=== PATIENT | male | born 1950 | race Caucasian/White ===

== ENCOUNTER 2018-12-10 15:54 | Observation (INO) | payer MEDICARE ==
[2018-12-10] MEDS ORDERED: HYDROcodone/APAP 5-325MG 1 EACH TAB PO STA (16:49)
[2018-12-10 16:55] LABS: Basophils # (A) 0.1 k/uL (0-0.2); Basophils % (A) 1 %; Eosinophils # (A) 0.1 k/uL (0-0.7); Eosinophils % (A) 1 %; HCT 44.1 % (39.0-53.0); Lymphocytes # (A) 1.7 k/uL (1.0-4.8); Lymphocytes % (A) 19 %; MCH 31.9 pg (25.0-35.0); MCHC 33.9 g/dL (31.0-37.0); MCV 94.1 fL (80.0-100.0); Mean Platelet Volume 6.9; Monocytes # (A) 0.4 k/uL (0-1.0); Monocytes % (A) 5 %; Neutrophils # (A) 6.3 k/uL (1.3-7.7); Neutrophils % (A) 73 %; Platelet Count 293 k/uL (150-450); RBC 4.69 m/uL (4.30-5.90); RDW 12.6 % (11.5-15.5); WBC 8.7 k/uL (3.8-10.6)
[2018-12-10 16:57] LABS: Appearance,Urine Clear (Clear); Bilirubin,Urine Negative (Negative); Blood,Urine Negative (Negative); Color,Urine Yellow; Glucose,Urine (UA) Negative (Negative); Ketones,Urine Negative (Negative); Leukocyte Esterase,Urine Negative (Negative); Nitrite,Urine Negative (Negative); Protein,Urine Trace (Negative); Specific Gravity,Urine 1.027 (1.001-1.035)
[2018-12-10 16:58] LABS: ALT 13 U/L (21-72); AST 19 U/L (17-59); African American GFR (CKD) >90 (>60 ml/min/1.73 sqM); Albumin 4.2 g/dL (3.5-5.0); Alkaline Phosphatase 74 U/L (38-126); Anion Gap 6 mmol/L; Blood Urea Nitrogen 28 mg/dL (9-20); Calcium 9.6 mg/dL (8.4-10.2); Carbon Dioxide 32 mmol/L (22-30); Chloride 103 mmol/L (98-107); Creatine Kinase 111 U/L (55-170); Glucose 136 mg/dL (74-99); Non-African American GFR(CKD) 86 (>60 ml/min/1.73 sqM); Potassium 4.5 mmol/L (3.5-5.1); Sodium 141 mmol/L (137-145); Total Bilirubin 0.4 mg/dL (0.2-1.3); Total Protein 6.6 g/dL (6.3-8.2)
[2018-12-10 17:00] LABS: INR 0.9 (<1.2); Prothrombin Time 10.2 sec (9.0-12.0)
--- NOTE | 2018-12-10 17:30 | XR ---
EXAMINATION TYPE: XR chest 2V DATE OF EXAM: 12/10/2018 COMPARISON: NONE TECHNIQUE: PA and lateral views submitted. HISTORY: Altered mental status FINDINGS: The lungs are clear and there is no pneumothorax, pleural effusion, or focal pneumonia. Hyperinflat ion suggests COPD. Hypertrophic and degenerative changes of the vertebral column. No overt failure. IMPRESSION: 1. No acute process. Correlate for COPD.
--- NOTE | 2018-12-10 17:34 | CT ---
EXAMINATION TYPE: CT brain wo con DATE OF EXAM: 12/10/2018 COMPARISON: None HISTORY: altered mental status CT DLP: 1083.1 mGycm Automated exposure control for dose reduction was used. FINDINGS: There is no acute intracranial hemorrhage, mass effect, or midline shift identified. Atherosclerotic changes of the vasculature noted. Mild to moderate generalized degenerative change. There is diffuse and focal areas of low-attenuation the white matter which are nonspecific cystic.. IMPRESSION: Degenerative and nonspecific white matter changes most typical remote microvascular ischemia. If ther e is concern for acute ischemia correlate with MRI as clinically warranted.
--- NOTE | 2018-12-10 17:41 | CT ---
EXAMINATION TYPE: CT lumbar spine wo con DATE OF EXAM: 12/10/2018 5:18 PM COMPARISON: None HISTORY: pain, inability to ambulate CT DLP: 569.1 mGycm Automated exposure control for dose reduction was used. Unenhanced CT of the lumbar spine was performed. Bone and soft tissue window settings are submitted as well as coronal and sagittal reconstructions. There is a scoliotic curvature the spine with severe degenerative disc disease at all levels with hyp ertrophic spurring. Bilateral spondylolysis of L5 with grade 1 anterior listhesis results in signific ant bilateral foraminal encroachment. Calcification seen in the renal hilum are likely vascular. Athe rosclerotic change of the aorta. L1-L2: Normal disc space height. No disc herniation protrusion or central stenosis. No facet joint arthropathy. No evidence for foraminal encroachment. L2-L3: Diffuse disc bulging and hypertrophic changes facets. There is left-sided foraminal encroachme nt. Borderline canal stenosis. L3-L4: Diffuse disc bulging with hypertrophic changes including the facet joints result in bilateral foraminal encroachment and borderline to mild canal stenosis L4-L5: Circumferential disc bulging and facet arthropathy are noted. Bilateral foraminal encroachment and borderline canal stenosis. L5-S1: Bilateral spondylolysis of L5 with grade 1 anterior listhesis results in significant bilateral foraminal encroachment.. Suspect canal stenosis. Chronic appearing deformity of the right lamina pos teriorly. Cannot exclude a right paracentral disc herniation extending laterally to the right reticul ation image 54. This would extend toward the right neural foramina. IMPRESSION: 1. Scoliosis with severe degenerative disc disease with vacuum disc at all levels. 2. Bilateral spondylolysis with grade 1 spondylolisthesis L5 on S1 and bilateral foraminal encroachme nt. Suspect canal stenosis. Could not exclude a right lateral disc herniation. Recommend follow-up MR I. 3. Multilevel foraminal encroachment and suspected borderline to mild canal stenosis.
--- NOTE | 2018-12-10 18:03 | ED ---
Altered Mental Status HPI - General Chief Complaint: Altered Mental Status Stated Complaint: altered mental status Time Seen by Provider: 12/10/18 16:10 Source: patient, EMS Mode of arrival: EMS Limitations: no limitations - History of Present Illness Initial Comments: The patient is a 67-year-old male with past medical history of hypertension and Parkinson's who presents to emergency room with reported altered mental status. The patient is coming from [facility] where he is in an independent living apartment. He will have staff from the facility that comes and checks on him once a week. He also has help with dispensing his medications. States that today he ate lunch and went and laid on the couch. States that this is the last he remembers. [facility] staff came in to check on the patient and they state that he was in and out of consciousness. EMS was called. The patient did awake to find multiple staff members in his room. States he felt urgency to urinate and had an episode of urinary incontinence which is not uncommon for him. There was no reported seizure-like activity. Upon transfer to the hospital EMS reported the patient was alert and oriented. Patient denies any recent medication changes. He has had several falls over the past couple of weeks because he states it become difficult to ambulate. He normally ambulates with a cane however he has had significant lumbar back pain with eating pain into his bilateral lower extremities. States he has extreme pain upon standing and therefore has been moving around his apartment on his knees. Friends are at bedside. They state that they saw the patient this past weekend and he was acting normally and ambulating at his baseline. No report of any falls with bl unt head trauma. Fevers or chills. Denies any weakness in his upper extremities. He is not on any anticoagulation. There are no other alleviating, precipitating or modifying factors - Related Data Home Medications Medication Instructions Recorded Confirmed Albuterol Inhaler [Ventolin Hfa 1 - 2 puff INHALATION RT-Q6H PRN 12/10/18 12/10/18 Inhaler] Carbidopa-Levodopa 25-100 mg 1 tab PO TID 12/10/18 12/10/18 [Sinemet 25-100 mg] rOPINIRole HCL [Requip] 0.5 mg PO TID 12/10/18 12/10/18 Previous Rx's Medication Instructions Recorded Baclofen [Lioresal] 5 mg PO TID PRN #9 tab 12/13/18 Naproxen [Naprosyn] 250 mg PO BID #14 tab 12/13/18 Psyllium Husk 100% [Metamucil 6 gm PO DAILY packet 12/13/18 Packet] predniSONE 0 mg PO DIRECTED #10 tab 12/13/18 Allergies Allergy/AdvReac Type Severity Reaction Status Date / Time amoxicillin [From Augmentin] Allergy Nausea & Verified 12/10/18 20:27 Vomiting clavulanic acid Allergy Nausea & Verified 12/10/18 20:27 [From Augmentin] Vomiting Review of Systems ROS Statement: Those systems with pertinent positive or pertinent negative responses have been documented in the HPI. ROS Other: All systems not noted in ROS Statement are negative. Past Medical History Past Medical History: COPD, Hypertension Additional Past Medical History / Comment(s): Parkinson's History of Any Multi-Drug Resistant Organisms: None Reported Past Surgical History: Adenoidectomy, Back Surgery, Tonsillectomy Past Psychological History: No Psychological Hx Reported Smoking Status: Former smoker Past Alcohol Use History: None Reported Past Drug Use History: None Reported General Exam Limitations: no limitations General appearance: alert, in no apparent distress Head exam: Present: atraumatic, normocephalic Eye exam: Present: PERRL Pupils: Present: normal accommodation ENT exam: Present: normal exam Neck exam: Present: normal inspection. Absent: tenderness, meningismus Respiratory exam: Present: normal lung sounds bilaterally. Absent: respiratory distress, wheezes, rales Cardiovascular Exam: Present: regular rate, normal rhythm GI/Abdominal exam: Present: soft. Absent: distended, tenderness, guarding, rebound, rigid Extremities exam: Present: other (4/5 strength bilateral lower extremities) Back exam: Present: paraspinal tenderness (L2-L5) Neurological exam: Present: oriented X3 Psychiatric exam: Present: normal affect, normal mood Skin exam: Present: warm, dry, intact Course Vital Signs 12/10/18 12/10/18 16:08 18:35 Temperature 98 F Pulse Rate 89 82 Respiratory 18 18 Rate Blood Pressure 139/70 133/88 O2 Sat by Pulse 99 98 Oximetry Medical Decision Making - Medical Decision Making Upon arrival the patient was placed into room 2. A thorough history is obtained from EMS. The patient is alert and able to answer questions appropriately. He does report to urinary urgency and low back pain. I did recommend laboratory studies and a EKG. I also recommended CT and patient's brain and lumbar spine. Laboratory studies are unremarkable. First troponin is negative. Urinalysis shows trace protein. CT of the patient's brain demonstrates degenerative and nonspecific white matter changes most typical of remote intervascular ischemia. Lumbar spine CT demonstrates scoliosis with severe degenerative disc disease with vacuum disc at all levels. Bilateral spondylolysis with grade 1 listhesis L5 on S1 and bilateral foraminal encroachment. Multilevel foraminal encroachment and suspected borderline to mild canal stenosis area and I did perform a chest x-ray as well which demonstrates no acute process. The patient remains alert and oriented throughout his stay in the ED. I did provide him with a [place] for back pain. I did recommend hospital admission for which the patient did agree. A call discuss case with Dr. Landa. He is recommending PT and OT consults. He is also requesting neuro checks and EEG. These orders were placed. The patient remained in stable condition was transferred to the floor - Lab Data Result diagrams: 12/11/18 05:58 12/11/18 05:58 Lab Results 12/10/18 12/10/18 12/10/18 Range/Units 16:04 16:04 16:04 WBC 8.7 (3.8-10.6) k/uL RBC 4.69 (4.30-5.90) m/uL Hgb 15.0 (13.0-17.5) gm/dL Hct 44.1 (39.0-53.0) % MCV 94.1 (80.0-100.0) fL MCH 31.9 (25.0-35.0) pg MCHC 33.9 (31.0-37.0) g/dL RDW 12.6 (11.5-15.5) % Plt Count 293 (150-450) k/uL Neutrophils % 73 % Lymphocytes % 19 % Monocytes % 5 % Eosinophils % 1 % Basophils % 1 % Neutrophils # 6.3 (1.3-7.7) k/uL Lymphocytes # 1.7 (1.0-4.8) k/uL Monocytes # 0.4 (0-1.0) k/uL Eosinophils # 0.1 (0-0.7) k/uL Basophils # 0.1 (0-0.2) k/uL PT 10.2 (9.0-12.0) sec INR 0.9 (<1.2) APTT 26.0 (22.0-30.0) sec Sodium 141 (137-145) mmol/L Potassium 4.5 (3.5-5.1) mmol/L Chloride 103 (98-107) mmol/L Carbon Dioxide 32 H (22-30) mmol/L Anion Gap 6 mmol/L BUN 28 H (9-20) mg/dL Creatinine 0.91 (0.66-1.25) mg/dL Est GFR (CKD-EPI)AfAm >90 (>60 ml/min/1.73 sqM) Est GFR (CKD-EPI)NonAf 86 (>60 ml/min/1.73 sqM) Glucose 136 H (74-99) mg/dL Calcium 9.6 (8.4-10.2) mg/dL Total Bilirubin 0.4 (0.2-1.3) mg/dL AST 19 (17-59) U/L ALT 13 L (21-72) U/L Alkaline Phosphatase 74 (38-126) U/L Ammonia (<30) umol/L Creatine Kinase 111 (55-170) U/L Troponin I (0.000-0.034) ng/mL Total Protein 6.6 (6.3-8.2) g/dL Albumin 4.2 (3.5-5.0) g/dL Triglycerides (<150) mg/dL Cholesterol (<200) mg/dL LDL Cholesterol, Calc (0-99) mg/dL HDL Cholesterol (40-60) mg/dL Vitamin B12 (200.0-944.0) pg/mL TSH (0.465-4.680) mIU/L Urine Color Urine Appearance (Clear) Urine pH (5.0-8.0) Ur Specific [place] (1.001-1.035) Urine Protein (Negative) Urine Glucose (UA) (Negative) Urine Ketones (Negative) Urine Blood (Negative) Urine Nitrite (Negative) Urine Bilirubin (Negative) Urine Urobilinogen (<2.0) mg/dL Ur Leukocyte Esterase (Negative) Treponema pallidum Ab (Non-Reactive) 12/10/18 12/10/18 12/11/18 Range/Units 16:04 16:52 05:58 WBC 6.2 (3.8-10.6) k/uL RBC 4.17 L (4.30-5.90) m/uL Hgb 13.3 (13.0-17.5) gm/dL Hct 39.4 (39.0-53.0) % MCV 94.4 (80.0-100.0) fL MCH 31.8 (25.0-35.0) pg MCHC 33.7 (31.0-37.0) g/dL RDW 12.6 (11.5-15.5) % Plt Count 253 (150-450) k/uL Neutrophils % 64 % Lymphocytes % 26 % Monocytes % 6 % Eosinophils % 1 % Basophils % 1 % Neutrophils # 4.0 (1.3-7.7) k/uL Lymphocytes # 1.6 (1.0-4.8) k/uL Monocytes # 0.4 (0-1.0) k/uL Eosinophils # 0.1 (0-0.7) k/uL Basophils # 0.0 (0-0.2) k/uL PT (9.0-12.0) sec INR (<1.2) APTT (22.0-30.0) sec Sodium (137-145) mmol/L Potassium (3.5-5.1) mmol/L Chloride (98-107) mmol/L Carbon Dioxide (22-30) mmol/L Anion Gap mmol/L BUN (9-20) mg/dL Creatinine (0.66-1.25) mg/dL Est GFR (CKD-EPI)AfAm (>60 ml/min/1.73 sqM) Est GFR (CKD-EPI)NonAf (>60 ml/min/1.73 sqM) Glucose (74-99) mg/dL Calcium (8.4-10.2) mg/dL Total Bilirubin (0.2-1.3) mg/dL AST (17-59) U/L ALT (21-72) U/L Alkaline Phosphatase (38-126) U/L Ammonia (<30) umol/L Creatine Kinase (55-170) U/L Troponin I <0.012 (0.000-0.034) ng/mL Total Protein (6.3-8.2) g/dL Albumin (3.5-5.0) g/dL Triglycerides (<150) mg/dL Cholesterol (<200) mg/dL LDL Cholesterol, Calc (0-99) mg/dL HDL Cholesterol (40-60) mg/dL Vitamin B12 (200.0-944.0) pg/mL TSH (0.465-4.680) mIU/L Urine Color Yellow Urine Appearance Clear (Clear) Urine pH 7.0 (5.0-8.0) Ur Specific [place] 1.027 (1.001-1.035) Urine Protein Trace H (Negative) Urine Glucose (UA) Negative (Negative) Urine Ketones Negative (Negative) Urine Blood Negative (Negative) Urine Nitrite Negative (Negative) Urine Bilirubin Negative (Negative) Urine Urobilinogen 6.0 (<2.0) mg/dL Ur Leukocyte Esterase Negative (Negative) Treponema pallidum Ab (Non-Reactive) 12/11/18 12/12/18 12/12/18 Range/Units 05:58 06:46 06:49 WBC (3.8-10.6) k/uL RBC (4.30-5.90) m/uL Hgb (13.0-17.5) gm/dL Hct (39.0-53.0) % MCV (80.0-100.0) fL MCH (25.0-35.0) pg MCHC (31.0-37.0) g/dL RDW (11.5-15.5) % Plt Count (150-450) k/uL Neutrophils % % Lymphocytes % % Monocytes % % Eosinophils % % Basophils % % Neutrophils # (1.3-7.7) k/uL Lymphocytes # (1.0-4.8) k/uL Monocytes # (0-1.0) k/uL Eosinophils # (0-0.7) k/uL Basophils # (0-0.2) k/uL PT (9.0-12.0) sec INR (<1.2) APTT (22.0-30.0) sec Sodium 140 (137-145) mmol/L Potassium 4.2 (3.5-5.1) mmol/L Chloride 105 (98-107) mmol/L Carbon Dioxide 31 H (22-30) mmol/L Anion Gap 4 mmol/L BUN 27 H (9-20) mg/dL Creatinine 0.72 (0.66-1.25) mg/dL Est GFR (CKD-EPI)AfAm >90 (>60 ml/min/1.73 sqM) Est GFR (CKD-EPI)NonAf >90 (>60 ml/min/1.73 sqM) Glucose 93 (74-99) mg/dL Calcium 9.0 (8.4-10.2) mg/dL Total Bilirubin (0.2-1.3) mg/dL AST (17-59) U/L ALT (21-72) U/L Alkaline Phosphatase (38-126) U/L Ammonia (<30) umol/L Creatine Kinase (55-170) U/L Troponin I (0.000-0.034) ng/mL Total Protein (6.3-8.2) g/dL Albumin (3.5-5.0) g/dL Triglycerides 57 (<150) mg/dL Cholesterol 165 (<200) mg/dL LDL Cholesterol, Calc 89 (0-99) mg/dL HDL Cholesterol 65 H (40-60) mg/dL Vitamin B12 416.0 (200.0-944.0) pg/mL TSH 0.794 (0.465-4.680) mIU/L Urine Color Urine Appearance (Clear) Urine pH (5.0-8.0) Ur Specific [place] (1.001-1.035) Urine Protein (Negative) Urine Glucose (UA) (Negative) Urine Ketones (Negative) Urine Blood (Negative) Urine Nitrite (Negative) Urine Bilirubin (Negative) Urine Urobilinogen (<2.0) mg/dL Ur Leukocyte Esterase (Negative) Treponema pallidum Ab Non-Reactive (Non-Reactive) 12/12/18 Range/Units 08:46 WBC (3.8-10.6) k/uL RBC (4.30-5.90) m/uL Hgb (13.0-17.5) gm/dL Hct (39.0-53.0) % MCV (80.0-100.0) fL MCH (25.0-35.0) pg MCHC (31.0-37.0) g/dL RDW (11.5-15.5) % Plt Count (150-450) k/uL Neutrophils % % Lymphocytes % % Monocytes % % Eosinophils % % Basophils % % Neutrophils # (1.3-7.7) k/uL Lymphocytes # (1.0-4.8) k/uL Monocytes # (0-1.0) k/uL Eosinophils # (0-0.7) k/uL Basophils # (0-0.2) k/uL PT (9.0-12.0) sec INR (<1.2) APTT (22.0-30.0) sec Sodium (137-145) mmol/L Potassium (3.5-5.1) mmol/L Chloride (98-107) mmol/L Carbon Dioxide (22-30) mmol/L Anion Gap mmol/L BUN (9-20) mg/dL Creatinine (0.66-1.25) mg/dL Est GFR (CKD-EPI)AfAm (>60 ml/min/1.73 sqM) Est GFR (CKD-EPI)NonAf (>60 ml/min/1.73 sqM) Glucose (74-99) mg/dL Calcium (8.4-10.2) mg/dL Total Bilirubin (0.2-1.3) mg/dL AST (17-59) U/L ALT (21-72) U/L Alkaline Phosphatase (38-126) U/L Ammonia <9 (<30) umol/L Creatine Kinase (55-170) U/L Troponin I (0.000-0.034) ng/mL Total Protein (6.3-8.2) g/dL Albumin (3.5-5.0) g/dL Triglycerides (<150) mg/dL Cholesterol (<200) mg/dL LDL Cholesterol, Calc (0-99) mg/dL HDL Cholesterol (40-60) mg/dL Vitamin B12 (200.0-944.0) pg/mL TSH (0.465-4.680) mIU/L Urine Color Urine Appearance (Clear) Urine pH (5.0-8.0) Ur Specific [place] (1.001-1.035) Urine Protein (Negative) Urine Glucose (UA) (Negative) Urine Ketones (Negative) Urine Blood (Negative) Urine Nitrite (Negative) Urine Bilirubin (Negative) Urine Urobilinogen (<2.0) mg/dL Ur Leukocyte Esterase (Negative) Treponema pallidum Ab (Non-Reactive) - EKG Data EKG Comments: EKG demonstrates normal sinus rhythm with a ventricular rate of 83. NC interval 136. QRS 86. QTC 4:30. No acute ST segment elevations or depressions concerning for ischemic changes Disposition Clinical Impression: Acute encephalopathy Disposition: ADMITTED IP TO THIS HOSP Condition: Stable Is patient prescribed a controlled substance at d/c from ED?: No Decision to Admit Reason: Admit from EC Decision Date: 12/10/18 Decision Time: 18:35
[2018-12-10] MEDS ORDERED: NALOXONE 0.4 MG/ML 1 ML VIAL IV PRN (18:37)
[2018-12-10] MEDS: HYDROcodone/APAP 5-325MG 1 EACH TAB PO PRN (20:38)
[2018-12-10] MEDS: CARBIDOPA-LEVODOPA 25-100 MG 1 EACH TAB PO SCH (20:38)
[2018-12-11] MEDS: HYDROcodone/APAP 5-325MG 1 EACH TAB PO PRN ×2 (05:05→11:07)
[2018-12-11 06:33] LABS: Basophils % (A) 1 %; Eosinophils # (A) 0.1 k/uL (0-0.7); Eosinophils % (A) 1 %; HCT 39.4 % (39.0-53.0); HGB 13.3 gm/dL (13.0-17.5); Lymphocytes # (A) 1.6 k/uL (1.0-4.8); Lymphocytes % (A) 26 %; MCH 31.8 pg (25.0-35.0); MCHC 33.7 g/dL (31.0-37.0); MCV 94.4 fL (80.0-100.0); Mean Platelet Volume 6.6; Monocytes # (A) 0.4 k/uL (0-1.0); Monocytes % (A) 6 %; Neutrophils % (A) 64 %; Platelet Count 253 k/uL (150-450); RBC 4.17 m/uL (4.30-5.90); RDW 12.6 % (11.5-15.5); WBC 6.2 k/uL (3.8-10.6)
[2018-12-11 06:59] LABS: African American GFR (CKD) >90 (>60 ml/min/1.73 sqM); Anion Gap 4 mmol/L; Blood Urea Nitrogen 27 mg/dL (9-20); Carbon Dioxide 31 mmol/L (22-30); Chloride 105 mmol/L (98-107); Glucose 93 mg/dL (74-99); Non-African American GFR(CKD) >90 (>60 ml/min/1.73 sqM); Potassium 4.2 mmol/L (3.5-5.1); Sodium 140 mmol/L (137-145)
[2018-12-11] MEDS: LISINOPRIL 5 MG TAB PO SCH (08:33)
[2018-12-11] MEDS: CARBIDOPA-LEVODOPA 25-100 MG 1 EACH TAB PO SCH ×3 (08:33→20:40)
[2018-12-11] MEDS ORDERED: DONEPEZIL 10 MG TAB PO SCH (09:00)
--- NOTE | 2018-12-11 16:30 | P.CNNES ---
History of Present Illness Consult date: 12/11/18 Reason for Consult: AMS Chief complaint: Passing out History of Present Illness: HISTORY OF PRESENT ILLNESS: Thank you for allowing me to evaluate Mr. Iker Arias. Mr. Arias is a 67-year-old man with past medical history of COPD, hypertension, presented to [facility] for reported altered mental status. Patient lives in an independent living facility. Patient states that he was found by the facility staff to call the checks on him once a week. The staff had called to check on him yesterday when he was found with intermittent changes in mental status. Denies any recent medication changes. Patient states that he's had multiple episodes of passing out where he sometimes finds himself on the floor. There may have been episodes of patient urinating on himself, but very little. Patient with significant pain when he stands, he stated that he's doing around on his knees in his apartment. PAST MEDICAL HISTORY: COPD, hypertension PAST SURGICAL HISTORY: Adenoidectomy, back surgery, tonsillectomy HOME MEDICATIONS: Requip, lisinopril, Sinemet, Donepezil ALLERGIES: Amoxicillin, Clavulanic acid SOCIAL HISTORY: Former smoker REVIEW OF SYSTEMS: The 14 systems are reviewed and no additional points are identified compared to the review of systems documented history and physical PHYSICAL EXAMINATION: VITAL SIGNS: T 97.7 HR 75 RR 18 BP 147/70 O2 sat 100% on RA GEN.: NAD, cooperative, masked facies HEENT: NCAT, sclera without icterus NECK: Supple SKIN AND EXTREMITIES: Warm to touch, cold hands and feet. Patient with significant cervical kyphosis NEURO: MENTAL STATUS: Patient alert and oriented to self, place, time. Able to name the current president. Speech fluent, able to name and repeat, following all commands readily. No right and left disorientation, neglect. CRANIAL NERVES II THROUGH XII: II: Pupils are equal and reactive to light symmetrically. No afferent pupillary defect. Visual ríos are intact. III, IV, : No ptosis. Extraocular movements full. No nystagmus. V: Facial sensation intact from V1-3. VII. No clear facial asymmetry. VIII: Hearing intact to finger rub bilaterally. IX, X: Symmetric palate elevation. XI: Shoulder shrug intact. XII: Tongue midline without fasciculation or atrophy. MOTOR: Normal bulk/tone. No pronator drift or tremor. Strength is 5/5 throughout all 4 extremities. SENSORY: Intact to light touch in all 4 extremities. REFLEXES: 2+ throughout. Toes are downgoing. COORDINATION: Finger to nose and heel to seay intact. No dysmetria. Rapid alternating movements with good speed and accuracy. GAIT: Narrow-based and stable but cautious. Significant cervical and lumbar kyphosis DIAGNOSTIC TESTING: LABORATORY: WBC 6.2 hemoglobin 13.3 platelet 253 PT 10.2 INR 0.9 sodium 140 potassium 4.2 chloride 105 bicarb 31 BUN 27 creatinine 0.72 glucose 93 AST 19 ALT 13 74 troponin <0.012 urinalysis negative IMAGING: CT head without contrast 12/10/2018: Degenerative and nonspecific white matter changes most typical remote microvascular ischemia. EKG: Normal sinus rhythm ASSESSMENT: 67-year-old man with past medical history of COPD, hypertension, presented to [facility] for reported altered mental status. Patient at this time with no focal neuro deficits. CT head showing diffuse nonspecific white matter changes most typical remote microvascular ischemia. Patient with episodes of losing consciousness without any heart palpitations or prodromal events, the patient is also not the best historian. RECOMMENDATIONS: 1. Recommend cardiology consult 2. Routine EEG obtained. Awaiting final results 3. Labs: Vitamin B12, TSH, RPR. 4. Orthostatic vital check. 5. Patient is on ropinirole and Sinemet. We'll discuss with patient about the possible diagnosis of Parkinson's disease. 6. We'll obtain MRI brain without contrast Past Medical History Past Medical History: COPD, Hypertension Additional Past Medical History / Comment(s): Parkinson's History of Any Multi-Drug Resistant Organisms: None Reported Past Surgical History: Adenoidectomy, Back Surgery, Tonsillectomy Past Psychological History: No Psychological Hx Reported Smoking Status: Former smoker Past Alcohol Use History: None Reported Past Drug Use History: None Reported Medications and Allergies Home Medications Medication Instructions Recorded Confirmed Type Albuterol Inhaler [Ventolin Hfa 1 - 2 puff INHALATION RT-Q6H PRN 12/10/18 12/10/18 History Inhaler] Carbidopa-Levodopa 25-100 mg 1 tab PO TID 12/10/18 12/10/18 History [Sinemet 25-100] Donepezil [Aricept] 10 mg PO DAILY 12/10/18 12/10/18 History Lisinopril [Prinivil] 5 mg PO DAILY 12/10/18 12/10/18 History rOPINIRole HCL [Requip] 0.5 mg PO TID 12/10/18 12/10/18 History Allergies Allergy/AdvReac Type Severity Reaction Status Date / Time amoxicillin [From Augmentin] Allergy Nausea & Verified 12/10/18 20:27 Vomiting clavulanic acid Allergy Nausea & Verified 12/10/18 20:27 [From Augmentin] Vomiting Physical Examination - Vital Signs Vital Signs: Vital Signs Temp Pulse Pulse Resp BP BP Pulse Ox 12/11/18 12:00 97.7 F 75 18 147/70 100 12/11/18 08:00 96.0 F L 89 20 153/79 97 12/11/18 04:00 85 16 140/74 98 12/10/18 23:42 98.3 F 83 16 121/57 96 12/10/18 20:00 98.5 F 72 17 157/78 100 12/10/18 18:35 82 18 133/88 98 Intake and Output 12/11/18 12/11/18 12/11/18 06:59 14:59 22:59 Intake Total 190 Balance 190 Intake: Oral 190 Other: Voiding Method Urinal Urinal Diaper # Voids 1 2 Weight 52.5 kg 52.5 kg Results - Laboratory Findings CBC and BMP: 12/11/18 05:58 12/11/18 05:58 Abnormal Lab Findings: Abnormal Labs 12/10/18 12/10/18 12/11/18 16:04 16:52 05:58 RBC 4.17 L Carbon Dioxide 32 H BUN 28 H Glucose 136 H ALT 13 L Urine Protein Trace H 12/11/18 05:58 RBC Carbon Dioxide 31 H BUN 27 H Glucose ALT Urine Protein
[2018-12-11] MEDS ORDERED: NAPROXEN 250 MG TAB PO STA (21:40)
[2018-12-11] MEDS ORDERED: predniSONE 20 MG TAB PO STA (21:41)
--- NOTE | 2018-12-11 21:54 | P.HPIM ---
History of Present Illness H&P Date: 12/11/18 Chief Complaint: Altered consciousness History of present complaint: This is a very pleasant 67-year-old patient of Dr. Bragg. Chronic stable medical conditions include COPD, hypertension, Parkinson's disease. Patient is to baseline is unsteady on his feet but he can hold onto things or even sometimes without that and walk.. All from recent patient been having incr easing low back pain. The pain has been significant. Unable to walk. Patient has been crawling on his knees. Yesterday he came back from lunch laying on the couch and was found her altered mental status. Patient has some incontinence at baseline. No seizure activity was reported. No focal weakness. Appetite is fair. No fever no chills or respiratory symptoms Review of systems: GEN.: Tired EYES: None HEENT: None NECK: None RESPIRATORY: None CARDIOVASCULAR: None GASTROINTESTINAL: None GENITOURINARY: Chronic intermittent incontinence MUSCULOSKELETAL: As above LYMPHATICS: None HEMATOLOGICAL: None PSYCHIATRY: Some forgetfulness NEUROLOGICAL: Tremor and gait dysfunction Social history: Does smoke in the past. Retired. Physical examination: VITAL SIGNS: 139/70, 99% room air GENERAL: BMI 18.7, sitting upon a chair leaning forward. EYES: Pupils equal. Conjunctiva normal. HEENT: External appearance of nose and ears normal, oral cavity grossly normal. NECK: JVD not raised; masses not palpable. HEART: First and second heart sounds are normal; no edema. LUNGS:[ Respiratory rate normal; decreased breath sounds. ABDOMEN: Soft, nontender, liver spleen not palpable, no masses palpable. PSYCH: Awake able to answer questions, mood and affect slightly lowl. NEUROLOGICAL: Patient's has monotone voice., Resting tremor. Bradykinesia. No rigidity. LYMPHATICS: No lymph nodes palpable in the axilla and neck MUSCULOSKELETAL: Evidence of arthritis especially in the hands INVESTIGATIONS, reviewed in the clinical context: White count 8.7 hemoglobin 15 potassium 4.5 crit 0.91 troponin I less than 0.012 EKG tracing personally reviewed by me-normal sinus rhythm Chest x-ray film personally reviewed by me-some hyperinflation CTs brain-degenerative and nonspecific white matter changes CT scan of the lumbar spine-scoliosis with severe DJD disc disease at all levels, bilateral foraminal encroachment suspected Stenosis Assessment: -Patient Had Episodes of Altered Consciousness Noticed at his place of residence. Given significant computed tomography scan findings need to rule out seizure activity. -Severe gait dysfunction from severe lumbar DJD, herniated disc, spondylosis and suspected spinal CANAL stenosis. This is a multiple level has not a candidate for any surgical intervention. 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 -COPD in an ex-smoker -Essential hypertension Plan: Neurology was consulted. EEG was ordered. 4 for the back pain we'll give the patient NSAIDs, baclofen and a burst of steroids. We will see use a K pad. PTOT is being consulted. Expect patient to have bit better once his pain is controlled. Care was discussed with the patient question were answered. Past Medical History Past Medical History: COPD, Hypertension Additional Past Medical History / Comment(s): Parkinson's History of Any Multi-Drug Resistant Organisms: None Reported Past Surgical History: Adenoidectomy, Back Surgery, Tonsillectomy Past Psychological History: No Psychological Hx Reported Smoking Status: Former smoker Past Alcohol Use History: None Reported Past Drug Use History: None Reported Medications and Allergies Home Medications Medication Instructions Recorded Confirmed Type Albuterol Inhaler [Ventolin Hfa 1 - 2 puff INHALATION RT-Q6H PRN 12/10/18 12/10/18 History Inhaler] Carbidopa-Levodopa 25-100 mg 1 tab PO TID 12/10/18 12/10/18 History [Sinemet 25-100] Donepezil [Aricept] 10 mg PO DAILY 12/10/18 12/10/18 History Lisinopril [Prinivil] 5 mg PO DAILY 12/10/18 12/10/18 History rOPINIRole HCL [Requip] 0.5 mg PO TID 12/10/18 12/10/18 History Allergies Allergy/AdvReac Type Severity Reaction Status Date / Time amoxicillin [From Augmentin] Allergy Nausea & Verified 12/10/18 20:27 Vomiting clavulanic acid Allergy Nausea & Verified 12/10/18 20:27 [From Augmentin] Vomiting Physical Exam Vitals: Vital Signs Temp Pulse Pulse Resp BP BP Pulse Ox 12/11/18 08:00 96.0 F L 89 20 153/79 97 12/11/18 04:00 85 16 140/74 98 12/10/18 23:42 98.3 F 83 16 121/57 96 12/10/18 20:00 98.5 F 72 17 157/78 100 12/10/18 18:35 82 18 133/88 98 12/10/18 16:08 98 F 89 18 139/70 99 Intake and Output 12/10/18 12/11/18 12/11/18 22:59 06:59 14:59 Output Total 20 Balance -20 Output: Urine 20 Other: Voiding Method Urinal Urinal Urinal Diaper # Voids 1 Weight 58.967 kg 52.5 kg 52.5 kg Results CBC & Chem 7: 12/11/18 05:58 12/11/18 05:58 Labs: Abnormal Lab Results - Last 24 Hours (Table) 12/10/18 12/10/18 12/11/18 Range/Units 16:04 16:52 05:58 RBC 4.17 L (4.30-5.90) m/uL Carbon Dioxide 32 H (22-30) mmol/L BUN 28 H (9-20) mg/dL Glucose 136 H (74-99) mg/dL ALT 13 L (21-72) U/L Urine Protein Trace H (Negative) 12/11/18 Range/Units 05:58 RBC (4.30-5.90) m/uL Carbon Dioxide 31 H (22-30) mmol/L BUN 27 H (9-20) mg/dL Glucose (74-99) mg/dL ALT (21-72) U/L Urine Protein (Negative) Thrombosis Risk Factor Assmnt - Choose All That Apply Any of the Below Risk Factors Present?: Yes Each Factor Represents 1 point: Abnormal pulmonary function (COPD), Medical pt on bed rest Other Risk Factors: Yes Each Risk Factor Represents 2 Points: Age 61-74 years Other congenital or acquired thrombophilia - If yes, enter type in comment: No Thrombosis Risk Factor Assessment Total Risk Factor Score: 4 Thrombosis Risk Factor Assessment Level: Moderate Risk
--- NOTE | 2018-12-11 22:19 | EEG ---
ELECTROENCEPHALOGRAM REPORT DATE OF PROCEDURE: 12/11/2018 ELECTROENCEPHALOGRAM (EEG) REPORT: TECHNIQUE: A routine 18-channel EEG was performed with video using the 10/20 international electrode placement system. HISTORY: Patient was in and out of consciousness, altered mental status. Patient brought to the emergency room for evaluation. CURRENT MEDICATIONS: 1. Requip. 2. Lisinopril. 3. Aricept. 4. Sinemet. 5. [place]. STUDY DURATION: 20 minutes. FINDINGS: Please note that portions of the recording were limited in their interpretation by the presence of muscle artifact. BACKGROUND: The background activity consisted of unsustained 5 to 6 Hz rhythmic waveforms with some intermixed delta range slowing. ACTIVATION: Hyperventilation: Not performed. Photic stimulation: No driving seen. Sleep: Drowsy. ABNORMALITIES: 1. Diffuse synchronous and asynchronous 3 to 6 Hz slow wave activity was seen, at times more frontally predominant. 2. Occasional triphasic waves were seen. IMPRESSION: Limited study, abnormal EEG. The triphasic waves mentioned above are not epileptiform in nature. Triphasic waves can be seen in the setting of a metabolic encephalopathy. The diffuse synchronous and asynchronous theta delta range slowing mentioned above is not epileptiform in nature. In combination with the slow background, these findings indicate moderate diffuse cerebral dysfunction as may be seen in a toxometabolic encephalopathy. No seizures were recorded. No epileptiform activity was present. MMODL / IJN: [id number] / MTDD
[2018-12-11] MEDS: BACLOFEN 10 MG TAB PO SCH (22:45)
[2018-12-11] MEDS: ENOXAPARIN 40 MG/0.4 ML SYRINGE SQ SCH (23:12)
[2018-12-12] MEDS: NAPROXEN 250 MG TAB PO SCH ×3 (09:27→20:52)
[2018-12-12] MEDS: BACLOFEN 10 MG TAB PO SCH ×3 (09:27→20:52)
[2018-12-12] MEDS: predniSONE 20 MG TAB PO SCH (09:27)
[2018-12-12] MEDS: ENOXAPARIN 40 MG/0.4 ML SYRINGE SQ SCH (09:28)
[2018-12-12] MEDS: CARBIDOPA-LEVODOPA 25-100 MG 1 EACH TAB PO SCH ×3 (09:28→20:52)
[2018-12-12] MEDS: LISINOPRIL 5 MG TAB PO SCH (09:28)
--- NOTE | 2018-12-12 13:51 | MR ---
EXAMINATION TYPE: MR brain wo con DATE OF EXAM: 12/12/2018 1:37 PM COMPARISON: NONE HISTORY: AMS FINDINGS: The ventricles, basal cisterns and sulci overlying the cerebral convexities are mildly enlarged. There is evidence of very thin fluid periventricular white matter ischemic demyelination. Frontal di agnostic possibilities include Binswanger's disease as well as demyelinating disease. Remote deep white matter insults are also noted. No acute edema is seen on diffusion weighted imaging. There is no evidence for midline shift or mass effect. Acute intracranial hemorrhage or extra-axial collection is not evident. The paranasal sinuses and mastoid air cells are well-aerated. IMPRESSION: Age-related atrophic and chronic small vessel ischemic change. Similar Binswanger's disease or demye lination. No acute intracranial process at this time.
--- NOTE | 2018-12-12 20:31 | P.PN ---
Progress Note - Text Progress Note Date: 12/12/18 SUBJECTIVE/INTERVAL EVENTS: No acute overnight events. Nurse pharmacy technician assistant states that patient already looks better as he's eating better. Patient also smiling more today. PHYSICAL EXAMINATION: VITAL SIGNS: T 96 HR 89 RR 20 BP 153/79 O2 sat 97% on RA GEN.: NAD, cooperative, masked facies HEENT: NCAT, sclera without icterus NECK: Supple SKIN AND EXTREMITIES: Warm to touch, cold hands and feet. Patient with significant cervical kyphosis NEURO: MENTAL STATUS: Patient alert and oriented to self, place, time. Able to name the current president. Speech fluent, able to name and repeat, following all commands readily. No right and left disorientation, neglect. CRANIAL NERVES II THROUGH XII: II: Pupils are equal and reactive to light symmetrically. No afferent pupillary defect. Visual ríos are intact. III, IV, : No ptosis. Extraocular movements full. No nystagmus. V: Facial sensation intact from V1-3. VII. No clear facial asymmetry. VIII: Hearing intact to finger rub bilaterally. IX, X: Symmetric palate elevation. XI: Shoulder shrug intact. XII: Tongue midline without fasciculation or atrophy. MOTOR: Normal bulk/tone. No pronator drift or tremor. Strength is 5/5 throughout all 4 extremities. SENSORY: Intact to light touch in all 4 extremities. REFLEXES: 2+ throughout. Toes are downgoing. COORDINATION: Finger to nose and heel to seay intact. No dysmetria. Rapid alternating movements with good speed and accuracy. GAIT: Narrow-based and stable but cautious. Significant cervical and lumbar kyphosis DIAGNOSTIC TESTING: LABORATORY: WBC 6.2 hemoglobin 13.3 platelet 253 PT 10.2 INR 0.9 sodium 140 potassium 4.2 chloride 105 bicarb 31 BUN 27 creatinine 0.72 glucose 93 AST 19 ALT 13 74 troponin <0.012 urinalysis negative Total cholesterol 165 LDL 89 HDL 65 triglycerides 57 TSH 0.794 Vitamin B12 416 RPR non-reactive ammonia <9 IMAGING: MRI brain w/o contrast 12/12/18: Age-related, white matter changes, chronic microvascular changes. Routine EEG 12/11/2018: Limited study. Triphasic waves present, which can be seen in the setting of metabolic encephalopathy. No epileptiform or seizures were recorded. CT head without contrast 12/10/2018: Degenerative and nonspecific white matter changes most typical remote microvascular ischemia. EKG: Normal sinus rhythm ASSESSMENT: 67-year-old man with past medical history of COPD, hypertension, presented to [facility] for reported altered mental status. Patient at this time with no focal neuro deficits. CT head showing diffuse nonspecific white matter changes most typical remote microvascular ischemia. Patient with episodes of losing consciousness without any heart palpitations or prodromal events, the p atient is also not the best historian. MRI brain w/o contrast showing diffuse microvascular ischemic changes, no acute intracranial process. RECOMMENDATIONS: 1. Routine EEG during triphasic waves, most likely metabolic encephalopathy 2. Orthostatic vital check. 3. Patient is on ropinirole and Sinemet. Patient cannot provide much information about the medication (but states that they were probably started 2 years ago) and denies having diagnosis of Parkinson's disease. 4. Neurology will sign off at this time. Please call with additional questions or concerns.
--- NOTE | 2018-12-12 22:12 | P.PN ---
Progress Note - Text Progress Note Date: 12/12/18 Chief Complaint: Altered consciousness Interval history: This is a very pleasant 67-year-old patient of Dr. Bragg. Chronic stable medical conditions include COPD, hypertension, Parkinson's disease. Patient is to baseline is unsteady on his feet but he can hold onto things or even sometimes without that and walk.. All from recent patient been having increasing low back pain. The pain has been significant. Unable to walk. Patient has been crawling on his knees. Yesterday he came back from lunch laying on the couch and was found her altered mental status. Patient has some incontinence at baseline. No seizure activity was reported. No focal weakness. Appetite is fair. No fever no chills or respiratory symptoms Admitted with possible flare up of Parkinson's disease likely from on and off phenomena. Element of encephalopathy. He came chronic back pain. Extensive workup in the past. Today-feeling much better. He did walk to the bathroom and to the sofa with little assistance. Did tolerate some diet. Review of systems: Was done for constitutional, cardiovascular, GI, pulmonary. relevant finding as above Active Medications Baclofen (Lioresal) 5 mg PO TID [facility] Last Admin: 12/12/18 20:52 Dose: 5 mg Documented by: Carbidopa/Levodopa (Sinemet 25-100) 1 each PO TID [facility] Last Admin: 12/12/18 20:52 Dose: 1 each Documented by: Enoxaparin Sodium (Lovenox) 40 mg SQ DAILY [facility] Last Admin: 12/12/18 09:28 Dose: 40 mg Documented by: Lisinopril (Zestril) 5 mg PO DAILY [facility] Last Admin: 12/12/18 09:28 Dose: 5 mg Documented by: Naloxone HCl (Narcan) 0.2 mg IV Q2M PRN PRN Reason: Opioid Reversal Naproxen (Naprosyn) 250 mg PO TID [facility] Last Admin: 12/12/18 20:52 Dose: 250 mg Documented by: Prednisone () 40 mg PO DAILY [facility] Last Admin: 12/12/18 09:27 Dose: 40 mg Documented by: Ropinirole HCl (Requip) 0.5 mg PO TID [facility] Last Admin: 12/12/18 20:52 Dose: 0.5 mg Documented by: Physical examination: VITAL SIGNS: 97.6, 88, 16, 130/72, 98% room air GENERAL: Sitting up at the sofa near the window leaning forward EYES: Pupils equal. Conjunctiva normal. HEENT: External appearance of nose and ears normal, oral cavity grossly normal. NECK: JVD not raised; masses not palpable. HEART: First and second heart sounds are normal; no edema. LUNGS:[ Respiratory rate normal; decreased breath sounds. ABDOMEN: Soft, nontender, liver spleen not palpable, no masses palpable. PSYCH: Awake able to answer questions, mood and affect slightly lowl. NEUROLOGICAL: Patient's has monotone voice., Resting tremor. Bradykinesia. No rigidity. MUSCULOSKELETAL: Evidence of arthritis especially in the hands INVESTIGATIONS, reviewed in the clinical context: White count 8.7 hemoglobin 15 potassium 4.5 crit 0.91 troponin I less than 0.012 EKG tracing personally reviewed by me-normal sinus rhythm Chest x-ray film personally reviewed by me-some hyperinflation CTs brain-degenerative and nonspecific white matter changes CT scan of the lumbar spine-scoliosis with severe DJD disc disease at all lev els, bilateral foraminal encroachment suspected Stenosis MRI brain-chronic degenerative changes EEG-showing encephalopathic findings. Negative for epilepsy Assessment: -Possible acute on chronic metabolic encephalopathy from. -Severe gait dysfunction from severe lumbar DJD, herniated disc, spondylosis and suspected spinal CANAL stenosis. This is a multiple level has not a candidate for any surgical intervention. 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 -COPD in an ex-smoker -Essential hypertension Plan: Patient is walking better. Discharge planners involved. Patient refused to do POA.Had a meeting with the patient, his nephew who is POA, his sister. It was decided to place that is good for long-term. As patient does talk need more assistance. He is currently at level I at the [facility]. He may have to be moved up or get more help. curing room worker will help coordinate that. Total of 45 minutes today was spent with over 25 minutes of discussion. Patient should be discharged tomorrow.
[2018-12-13] MEDS: NAPROXEN 250 MG TAB PO SCH ×2 (08:43→16:27)
[2018-12-13] MEDS: CARBIDOPA-LEVODOPA 25-100 MG 1 EACH TAB PO SCH ×2 (08:43→16:27)
[2018-12-13] MEDS: BACLOFEN 10 MG TAB PO SCH ×2 (08:44→16:27)
[2018-12-13] MEDS: LISINOPRIL 5 MG TAB PO SCH (08:44)
[2018-12-13] MEDS: ENOXAPARIN 40 MG/0.4 ML SYRINGE SQ SCH (08:45)
[2018-12-13] MEDS: predniSONE 20 MG TAB PO SCH (08:45)
[2018-12-13 09:21] VITALS: RESP 16
[2018-12-13] MEDS ORDERED: LACTULOSE 20 GM/30 ML CUP PO ONE (11:17)
[2018-12-13] MEDS ORDERED: PSYLLIUM HUSK 100% 6 GM PACKET PO SCH (11:30)
--- NOTE | 2018-12-13 12:35 | P.DS ---
Providers Date of admission: 12/12/18 10:09 Expected date of discharge: 12/13/18 Attending physician: Joel Fuller Consults: 12/11/18 10:50 Consult Physician Routine Consulting Provider: Karen Erickson Consult Reason/Comments: altered mental status Do you want consulting provider notified?: Yes Primary care physician: Bruno Monahan [facility] Course: Chief Complaint: Altered consciousness Hospital course: This is a very pleasant 67-year-old patient of Dr. Bragg. Chronic stable medical conditions include COPD, hypertension, Parkinson's disease. Patient is to baseline is unsteady on his feet but he can hold onto things or even sometimes without that and walk.. All from recent patient been having increasing low back pain. The pain has been significant. Unable to walk. Patient has been crawling on his knees. Yesterday he came back from lunch laying on the couch and was found her altered mental status. Patient has some incontinence at baseline. No seizure activity was reported. No focal weakness. Appetite is fair. No fever no chills or respiratory symptoms Admitted with possible flare up of Parkinson's disease likely from on and off phenomena. Element of encephalopathy. He also had acute on chronic back pain. Extensive workup in the past. Patient is given a combination of NSAIDs, antispasmodic and a short burst of steroids. Back pain is better. Did with the patient's nephew goes to do POA. For the understanding that at some point patient will need long-term placement. Patient understands the same. I will stop patient's Aricept hasn't Parkinson's disease patient more likely have liver body dementia if any. I'm more concerned about the side effects of the present time. We'll stop the same and see how he does. MRI showed chronic changes. EEG suggestive encephalopathy.. No seizure activity. Discussion and discharge planning more than 35 minutes Consultation: from neurology Physical examination: VITAL SIGNS: 98.4, 96, 16, 121/72, 100% room air GENERAL: Sitting up in a chair, comfortable EYES: Pupils equal. Conjunctiva normal. HEENT: External appearance of nose and ears normal, oral cavity grossly normal. NECK: JVD not raised; masses not palpable. HEART: First and second heart sounds are normal; no edema. LUNGS:[ Respiratory rate normal; decreased breath sounds. ABDOMEN: Soft, nontender, liver spleen not palpable, no masses palpable. PSYCH: Answering questions. NEUROLOGICAL: Patient's has monotone voice., Resting tremor. Bradykinesia. No rigidity. MUSCULOSKELETAL: Evidence of arthritis especially in the hands INVESTIGATIONS, reviewed in the clinical context: White count 8.7 hemoglobin 15 potassium 4.5 crit 0.91 troponin I less than 0.012 EKG tracing personally reviewed by me-normal sinus rhythm Chest x-ray film personally reviewed by me-some hyperinflation CTs brain-degenerative and nonspecific white matter changes CT scan of the lumbar spine-scoliosis with severe DJD disc disease at all levels, bilateral foraminal encroachment suspected Stenosis MRI brain-chronic degenerative changes EEG-showing encephalopathic findings. Negative for epilepsy Assessment: -Possible acute on chronic metabolic encephalopathy . Stop Aricept. -Severe gait dysfunction from severe lumbar DJD, herniated disc, spondylosis and suspected spinal CANAL stenosis. This is a multiple level has not a candidate for any surgical intervention. 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 -COPD in an ex-smoker -Essential hypertension [facility] Condition at Discharge: Stable Plan - Discharge Summary Discharge Rx Participant: No New Discharge Prescriptions: New Baclofen [Lioresal] 5 mg PO TID PRN #9 tab PRN Reason: Spasms Psyllium Husk 100% [Metamucil Packet] 6 gm PO DAILY packet Naproxen [Naprosyn] 250 mg PO BID #14 tab predniSONE 0 mg PO DIRECTED #10 tab Continue rOPINIRole HCL [Requip] 0.5 mg PO TID Carbidopa-Levodopa 25-100 mg [Sinemet 25-100 mg] 1 tab PO TID Albuterol Inhaler [Ventolin Hfa Inhaler] 1 - 2 puff INHALATION RT-Q6H PRN PRN Reason: Shortness Of Breath Discontinued Lisinopril [Prinivil] 5 mg PO DAILY Donepezil [Aricept] 10 mg PO DAILY Discharge Medication List Albuterol Inhaler [Ventolin Hfa Inhaler] 1 - 2 puff INHALATION RT-Q6H PRN 12/10/18 [History] Carbidopa-Levodopa 25-100 mg [Sinemet 25-100 mg] 1 tab PO TID 12/10/18 [History] rOPINIRole HCL [Requip] 0.5 mg PO TID 12/10/18 [History] Baclofen [Lioresal] 5 mg PO TID PRN #9 tab 12/13/18 [Rx] Naproxen [Naprosyn] 250 mg PO BID #14 tab 12/13/18 [Rx] Psyllium Husk 100% [Metamucil Packet] 6 gm PO DAILY packet 12/13/18 [Rx] predniSONE 0 mg PO DIRECTED #10 tab 12/13/18 [Rx] Follow up Appointment(s)/Referral(s): Ata Rivas DO [STAFF PHYSICIAN] - 1-2 Days Bruno Morley DO [Primary Care Provider] - As Needed Activity/Diet/Wound Care/Special Instructions: ECF at discharge.
[2018-12-13 14:13] VITALS: BMI 19.3
[2018-12-13 15:03] VITALS: BP 136/82; PULSE 80; TEMP 97.2
== END 2018-12-13 16:57 ==
LOC: EC 15:54 → UNDOADMOB 18:37 → 3SCARD 18:37 → OBSVTOIN 12-12 10:09 → INTOOBSV 12-12 10:09 → UNDODISIN 12-13 16:57
PROVIDERS: ADMIT Hospitalist; ATTEND Hospitalist
DX: R41.82 Altered mental status, unspecified (principal); G89.29 Other chronic pain; I10 Essential (primary) hypertension; J44.9 Chronic obstructive pulmonary disease, unspecified; G20 Parkinson's disease; M41.9 Scoliosis, unspecified; M43.07 Spondylolysis, lumbosacral region; M47.816 Spondylosis without myelopathy or radiculopathy, lumbar region; M51.36 Other intervertebral disc degeneration, lumbar region; N39.41 Urge incontinence; Z79.899 Other long term (current) drug therapy; Z87.891 Personal history of nicotine dependence; Z88.1 Allergy status to other antibiotic agents
CPT/HCPCS: 96372 ×3; 99285; 36415; 95816; 93005; 97116; 97162; 97535 ×2; 97166; 92610; 80061; 80053; 80048; 84443; 82607; 82140; 82550; 84484; 85025 ×2; 85610; 85730; 81003; 86780; 71046; 72131; 70450; 70551; G0378 ×4; J1650 ×3; J7512 ×3

== ENCOUNTER 2018-12-16 19:34 | Observation (INO) | payer MEDICARE ==
[2018-12-16] MEDS ORDERED: SODIUM CHLORIDE 0.9% 500 ML 500 ML IV ONE (19:48)
--- NOTE | 2018-12-16 19:56 | ED ---
General Adult HPI - General Chief complaint: Psychiatric Symptoms Stated complaint: Aggressive Behavior Time Seen by Provider: 12/16/18 19:37 Source: patient, EMS, RN notes reviewed Mode of arrival: EMS Limitations: no limitations - History of Present Illness Initial comments: Patient is a 67-year-old male with a past medical history of hypertension, Pa rkinson's who presents for altered mental status. Patient was recently discharged from this facility 3 days ago. He was previously in an assisted living facility but was moved to a senior care. Apparently today staff was interacting the patient to give him his medications and he began acting agg ressively. States he was trying to cut people with a comb. EMS was called. EMS reports that when they got to the scene patient was looking for something under the bed. States EMS when up and startled him and he has being aggressive. EMS states he walked out to the stretcher in the down however after that would not respond to verbal stimuli. She was recently admitted for a somewhat similar episode of altered mental status that had resolved prior to arrival in the emergency department. Patient underwent an EEG at that time which showed possible metabolic encephalopathy, without epileptiform nature. It was thought on his last admission he was developing acute on chronic metabolic encephalopathy. Aricept was stopped. 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 It is noted that patient was started on baclofen during his admission. - Related Data Home Medications Medication Instructions Recorded Confirmed Albuterol Inhaler [Ventolin Hfa 1 - 2 puff INHALATION RT-Q6H PRN 12/10/18 12/10/18 Inhaler] Carbidopa-Levodopa 25-100 mg 1 tab PO TID 12/10/18 12/10/18 [Sinemet 25-100 mg] rOPINIRole HCL [Requip] 0.5 mg PO TID 12/10/18 12/10/18 Previous Rx's Medication Instructions Recorded Baclofen [Lioresal] 5 mg PO TID PRN #9 tab 12/13/18 Naproxen [Naprosyn] 250 mg PO BID #14 tab 12/13/18 Psyllium Husk 100% [Metamucil 6 gm PO DAILY packet 12/13/18 Packet] predniSONE 0 mg PO DIRECTED #10 tab 12/13/18 Allergies Allergy/AdvReac Type Severity Reaction Status Date / Time amoxicillin [From Augmentin] Allergy Nausea & Verified 12/16/18 19:42 Vomiting clavulanic acid Allergy Nausea & Verified 12/16/18 19:42 [From Augmentin] Vomiting Review of Systems ROS Statement: Those systems with pertinent positive or pertinent negative responses have been documented in the HPI. ROS Other: All systems not noted in ROS Statement are negative. Past Medical History Past Medical History: COPD, Hypertension Additional Past Medical History / Comment(s): Parkinson's History of Any Multi-Drug Resistant Organisms: None Reported Past Surgical History: Adenoidectomy, Back Surgery, Tonsillectomy Past Psychological History: No Psychological Hx Reported Smoking Status: Former smoker Past Alcohol Use History: None Reported Past Drug Use History: None Reported General Exam Limitations: no limitations General appearance: obtunded Head exam: Present: atraumatic, normocephalic, normal inspection Eye exam: Present: normal appearance, PERRL, other (Eyes are open spontaneously). Absent: scleral icterus, conjunctival injection, periorbital swelling ENT exam: Present: normal exam, normal oropharynx, mucous membranes moist, normal external ear exam Neck exam: Present: normal inspection. Absent: tenderness, meningismus, lymphadenopathy Respiratory exam: Present: normal lung sounds bilaterally. Absent: respiratory distress, wheezes, rales, rhonchi, stridor Cardiovascular Exam: Present: regular rate, normal rhythm, normal heart sounds. Absent: systolic murmur, diastolic murmur, rubs, gallop, clicks GI/Abdominal exam: Present: soft, normal bowel sounds. Absent: distended, tende rness, guarding, rebound, rigid exam: Present: normal inspection. Absent: scrotal swelling Neurological exam: Present: altered. Absent: oriented X3 (Patient not responsive to verbal questioning) Expanded Cranial nerves: Gag Reflex: Normal Sensory exam: Upper Extremity Pin Prick: Normal, Lower Extremity Light Touch: Normal Eye Response: (4) open spontaneously Motor Response: (5) localizes to pain Verbal Response: (1) no verbal response [place] Total: 10 Course Vital Signs 12/16/18 12/16/18 12/16/18 19:35 19:50 20:05 Temperature 97.7 F Pulse Rate 89 87 88 Respiratory 20 20 20 Rate Blood Pressure 141/86 139/79 140/82 O2 Sat by Pulse 100 99 98 Oximetry 12/16/18 12/16/18 12/16/18 20:20 20:35 20:50 Temperature Pulse Rate 90 75 77 Respiratory 18 20 18 Rate Blood Pressure 142/81 143/90 144/88 O2 Sat by Pulse 99 97 97 Oximetry 12/16/18 12/16/18 21:19 22:00 Temperature 97.7 F Pulse Rate 73 81 Respiratory 18 16 Rate Blood Pressure 164/84 152/95 O2 Sat by Pulse 99 98 Oximetry - Reevaluation(s) Reevaluation #1: 12/16/18 19:45 Dr Witt also evaluated patient. EKG Findings - EKG Comments: EKG Findings:: Sinus rhythm with marked sinus arrhythmia noted, ventricular rate 77, TN interval 122, QTC 423, Medical Decision Making - Medical Decision Making 67-year-old male presents for altered mental status, global aphasia. Patient was acting aggressively and then 30 minutes prior to arrival he came unresponsive to verbal stimuli. However patient is responsive to pain stimuli. Gag reflex is intact. She was recently admitted for metabolic encephalopathy, possible Nick body dementia pain, possible Parkinson dementia exacerbation and discharged to a ECF. Vitals are stable upon arrival. GCS is 10. he was immediately evaluated by myself and Dr. Witt. Her open spontaneously. He is localizing pain. However he is not verbally responsive. CBC is is unremarkable. CMP does show uremia and mild hypercapnia. Urine analysis is negative. Acetaminophen negative. Chest x-ray shows no acute ulnar process. Repeat CT brain was obtained to rule out any hemorrhage which showed confluent v entricular white matter changes. Patient did become more alert during his stay in the ER, sittign up, however still will not answer questions. Neuro consult was requested by admitting the patient. I did call and administered at discharge and she is unsure of who will be international student counselor tomorrow. Therefore I consulted Dr. Erickson as that is who saw him in the hospital last time. She states this will go to any of their neurologists that are on tomorrow. - Lab Data Result diagrams: 12/16/18 20:00 12/16/18 20:00 Lab Results 12/16/18 12/16/18 12/16/18 Range/Units 20:00 20:00 20:00 WBC 9.5 (3.8-10.6) k/uL RBC 4.52 (4.30-5.90) m/uL Hgb 14.0 (13.0-17.5) gm/dL Hct 42.3 (39.0-53.0) % MCV 93.4 (80.0-100.0) fL MCH 31.0 (25.0-35.0) pg MCHC 33.2 (31.0-37.0) g/dL RDW 12.7 (11.5-15.5) % Plt Count 291 (150-450) k/uL Neutrophils % 74 % Lymphocytes % 15 % Monocytes % 9 % Eosinophils % 0 % Basophils % 1 % Neutrophils # 7.0 (1.3-7.7) k/uL Lymphocytes # 1.4 (1.0-4.8) k/uL Monocytes # 0.9 (0-1.0) k/uL Eosinophils # 0.0 (0-0.7) k/uL Basophils # 0.1 (0-0.2) k/uL PT (9.0-12.0) sec INR (<1.2) APTT (22.0-30.0) sec Sodium 137 (137-145) mmol/L Potassium 4.4 (3.5-5.1) mmol/L Chloride 100 (98-107) mmol/L Carbon Dioxide 31 H (22-30) mmol/L Anion Gap 6 mmol/L BUN 29 H (9-20) mg/dL Creatinine 0.88 (0.66-1.25) mg/dL Est GFR (CKD-EPI)AfAm >90 (>60 ml/min/1.73 sqM) Est GFR (CKD-EPI)NonAf 88 (>60 ml/min/1.73 sqM) Glucose 117 H (74-99) mg/dL POC Glucose (mg/dL) (75-99) mg/dL POC Glu Professional Services Manager ID Calcium 9.3 (8.4-10.2) mg/dL Total Bilirubin 0.4 (0.2-1.3) mg/dL AST 16 L (17-59) U/L ALT 6 L (21-72) U/L Alkaline Phosphatase 65 (38-126) U/L Ammonia <9 (<30) umol/L Troponin I (0.000-0.034) ng/mL Total Protein 6.2 L (6.3-8.2) g/dL Albumin 3.9 (3.5-5.0) g/dL TSH (0.465-4.680) mIU/L Urine Color Urine Appearance (Clear) Urine pH (5.0-8.0) Ur Specific [place] (1.001-1.035) Urine Protein (Negative) Urine Glucose (UA) (Negative) Urine Ketones (Negative) Urine Blood (Negative) Urine Nitrite (Negative) Urine Bilirubin (Negative) Urine Urobilinogen (<2.0) mg/dL Ur Leukocyte Esterase (Negative) Urine Opiates Screen (NotDetected) Ur Oxycodone Screen (NotDetected) Urine Methadone Screen (NotDetected) Ur Propoxyphene Screen (NotDetected) Acetaminophen ug/mL Ur Barbiturates Screen (NotDetected) U Tricyclic Antidepress (NotDetected) Ur Phencyclidine Scrn (NotDetected) Ur Amphetamines Screen (NotDetected) U Methamphetamines Scrn (NotDetected) U Benzodiazepines Scrn (NotDetected) Urine Cocaine Screen (NotDetected) U Marijuana (THC) Screen (NotDetected) 12/16/18 12/16/18 12/16/18 Range/Units 20:00 20:00 20:00 WBC (3.8-10.6) k/uL RBC (4.30-5.90) m/uL Hgb (13.0-17.5) gm/dL Hct (39.0-53.0) % MCV (80.0-100.0) fL MCH (25.0-35.0) pg MCHC (31.0-37.0) g/dL RDW (11.5-15.5) % Plt Count (150-450) k/uL Neutrophils % % Lymphocytes % % Monocytes % % Eosinophils % % Basophils % % Neutrophils # (1.3-7.7) k/uL Lymphocytes # (1.0-4.8) k/uL Monocytes # (0-1.0) k/uL Eosinophils # (0-0.7) k/uL Basophils # (0-0.2) k/uL PT 10.4 (9.0-12.0) sec INR 1.0 (<1.2) APTT 23.3 (22.0-30.0) sec Sodium (137-145) mmol/L Potassium (3.5-5.1) mmol/L Chloride (98-107) mmol/L Carbon Dioxide (22-30) mmol/L Anion Gap mmol/L BUN (9-20) mg/dL Creatinine (0.66-1.25) mg/dL Est GFR (CKD-EPI)AfAm (>60 ml/min/1.73 sqM) Est GFR (CKD-EPI)NonAf (>60 ml/min/1.73 sqM) Glucose (74-99) mg/dL POC Glucose (mg/dL) (75-99) mg/dL POC Glu Professional Services Manager ID Calcium (8.4-10.2) mg/dL Total Bilirubin (0.2-1.3) mg/dL AST (17-59) U/L ALT (21-72) U/L Alkaline Phosphatase (38-126) U/L Ammonia (<30) umol/L Troponin I <0.012 (0.000-0.034) ng/mL Total Protein (6.3-8.2) g/dL Albumin (3.5-5.0) g/dL TSH 0.757 (0.465-4.680) mIU/L Urine Color Urine Appearance (Clear) Urine pH (5.0-8.0) Ur Specific [place] (1.001-1.035) Urine Protein (Negative) Urine Glucose (UA) (Negative) Urine Ketones (Negative) Urine Blood (Negative) Urine Nitrite (Negative) Urine Bilirubin (Negative) Urine Urobilinogen (<2.0) mg/dL Ur Leukocyte Esterase (Negative) Urine Opiates Screen (NotDetected) Ur Oxycodone Screen (NotDetected) Urine Methadone Screen (NotDetected) Ur Propoxyphene Screen (NotDetected) Acetaminophen <10.0 ug/mL Ur Barbiturates Screen (NotDetected) U Tricyclic Antidepress (NotDetected) Ur Phencyclidine Scrn (NotDetected) Ur Amphetamines Screen (NotDetected) U Methamphetamines Scrn (NotDetected) U Benzodiazepines Scrn (NotDetected) Urine Cocaine Screen (NotDetected) U Marijuana (THC) Screen (NotDetected) 11/10/19 11/10/19 Range/Units 20:09 20:45 WBC (3.8-10.6) k/uL RBC (4.30-5.90) m/uL Hgb (13.0-17.5) gm/dL Hct (39.0-53.0) % MCV (80.0-100.0) fL MCH (25.0-35.0) pg MCHC (31.0-37.0) g/dL RDW (11.5-15.5) % Plt Count (150-450) k/uL Neutrophils % % Lymphocytes % % Monocytes % % Eosinophils % % Basophils % % Neutrophils # (1.3-7.7) k/uL Lymphocytes # (1.0-4.8) k/uL Monocytes # (0-1.0) k/uL Eosinophils # (0-0.7) k/uL Basophils # (0-0.2) k/uL PT (9.0-12.0) sec INR (<1.2) APTT (22.0-30.0) sec Sodium (137-145) mmol/L Potassium (3.5-5.1) mmol/L Chloride (98-107) mmol/L Carbon Dioxide (22-30) mmol/L Anion Gap mmol/L BUN (9-20) mg/dL Creatinine (0.66-1.25) mg/dL Est GFR (CKD-EPI)AfAm (>60 ml/min/1.73 sqM) Est GFR (CKD-EPI)NonAf (>60 ml/min/1.73 sqM) Glucose (74-99) mg/dL POC Glucose (mg/dL) 110 H (75-99) mg/dL POC Glu Professional Services Manager ID Ari Hernandez Calcium (8.4-10.2) mg/dL Total Bilirubin (0.2-1.3) mg/dL AST (17-59) U/L ALT (21-72) U/L Alkaline Phosphatase (38-126) U/L Ammonia (<30) umol/L Troponin I (0.000-0.034) ng/mL Total Protein (6.3-8.2) g/dL Albumin (3.5-5.0) g/dL TSH (0.465-4.680) mIU/L Urine Color Yellow Urine Appearance Clear (Clear) Urine pH 6.5 (5.0-8.0) Ur Specific [place] 1.022 (1.001-1.035) Urine Protein Negative (Negative) Urine Glucose (UA) Negative (Negative) Urine Ketones Negative (Negative) Urine Blood Negative (Negative) Urine Nitrite Negative (Negative) Urine Bilirubin Negative (Negative) Urine Urobilinogen <2.0 (<2.0) mg/dL Ur Leukocyte Esterase Negative (Negative) Urine Opiates Screen Not Detected (NotDetected) Ur Oxycodone Screen Not Detected (NotDetected) Urine Methadone Screen Not Detected (NotDetected) Ur Propoxyphene Screen Not Detected (NotDetected) Acetaminophen ug/mL Ur Barbiturates Screen Not Detected (NotDetected) U Tricyclic Antidepress Not Detected (NotDetected) Ur Phencyclidine Scrn Not Detected (NotDetected) Ur Amphetamines Screen Not Detected (NotDetected) U Methamphetamines Scrn Not Detected (NotDetected) U Benzodiazepines Scrn Not Detected (NotDetected) Urine Cocaine Screen Not Detected (NotDetected) U Marijuana (THC) Screen Not Detected (NotDetected) Disposition Clinical Impression: Uremia, Altered mental status Disposition: ADMITTED IP TO THIS HOSP Condition: Fair Is patient prescribed a controlled substance at d/c from ED?: No Referrals: Bruno Morley DO [Primary Care Provider] - 1-2 days Time of Disposition: 22:57
[2018-12-16 20:11] LABS: Glucose,Whole Blood 110 mg/dL (75-99)
[2018-12-16 20:20] LABS: Basophils # (A) 0.1 k/uL (0-0.2); Basophils % (A) 1 %; Eosinophils % (A) 0 %; HCT 42.3 % (39.0-53.0); Lymphocytes # (A) 1.4 k/uL (1.0-4.8); Lymphocytes % (A) 15 %; MCHC 33.2 g/dL (31.0-37.0); MCV 93.4 fL (80.0-100.0); Mean Platelet Volume 7.7; Monocytes # (A) 0.9 k/uL (0-1.0); Monocytes % (A) 9 %; Neutrophils % (A) 74 %; Platelet Count 291 k/uL (150-450); RBC 4.52 m/uL (4.30-5.90); RDW 12.7 % (11.5-15.5); WBC 9.5 k/uL (3.8-10.6)
[2018-12-16 20:30] LABS: ALT 6 U/L (21-72); AST 16 U/L (17-59); African American GFR (CKD) >90 (>60 ml/min/1.73 sqM); Albumin 3.9 g/dL (3.5-5.0); Alkaline Phosphatase 65 U/L (38-126); Anion Gap 6 mmol/L; Blood Urea Nitrogen 29 mg/dL (9-20); Calcium 9.3 mg/dL (8.4-10.2); Carbon Dioxide 31 mmol/L (22-30); Chloride 100 mmol/L (98-107); Glucose 117 mg/dL (74-99); Non-African American GFR(CKD) 88 (>60 ml/min/1.73 sqM); Potassium 4.4 mmol/L (3.5-5.1); Sodium 137 mmol/L (137-145); Total Bilirubin 0.4 mg/dL (0.2-1.3); Total Protein 6.2 g/dL (6.3-8.2)
[2018-12-16 20:32] LABS: Partial Thromboplastin Time 23.3 sec (22.0-30.0); Prothrombin Time 10.4 sec (9.0-12.0)
--- NOTE | 2018-12-16 20:41 | CT ---
EXAMINATION TYPE: CT brain wo con DATE OF EXAM: 12/16/2018 COMPARISON: 12/10/2018 INDICATION: AMS. Pt was combative, less so after arrival to ER DLP: 1188.4 mGycm, Automated exposure control for dose reduction was used. CONTRAST: None CT of the brain is performed utilizing 3 mm thick sections through the posterior fossa and 3 mm thick sections through the remaining calvarium. Study is performed within 24 hours of arrival to the hosp ital. No abnormal hyperdensity is present to suggest an acute intracranial hemorrhage. No mass lesion is evident. No acute infarcts are evident. Large confluent white matter changes are present. This appears similar to the prior study. Ventricles and sulci are prominent for the patient age. Paranasal sinuses and mastoid air cells within the [id number] are clear. IMPRESSIONS: 1. Confluent periventricular white matter changes.
--- NOTE | 2018-12-16 20:42 | XR ---
EXAMINATION TYPE: XR chest 1V DATE OF EXAM: 12/16/2018 COMPARISON: 12/10/2018 INDICATION: Acute mental status change TECHNIQUE: Single frontal view of the chest is obtained. FINDINGS: The heart size is normal. The pulmonary vasculature is normal. The lungs are clear. There is hyperinflation. IMPRESSION: 1. No acute pulmonary process.
[2018-12-16 20:49] LABS: Acetaminophen <10.0 ug/mL
[2018-12-16 21:12] LABS: Appearance,Urine Clear (Clear); Bilirubin,Urine Negative (Negative); Blood,Urine Negative (Negative); Color,Urine Yellow; Glucose,Urine (UA) Negative (Negative); Ketones,Urine Negative (Negative); Leukocyte Esterase,Urine Negative (Negative); Nitrite,Urine Negative (Negative); PH, Urine 6.5 (5.0-8.0); Protein,Urine Negative (Negative); Specific Gravity,Urine 1.022 (1.001-1.035); Urobilinogen,Urine <2.0 mg/dL (<2.0)
[2018-12-16 21:31] LABS: Amphetamine Screen,Urine Not Detected (NotDetected); Barbiturate Screen,Urine Not Detected (NotDetected); Benzodiazepines Screen,Urine Not Detected (NotDetected); Cocaine Screen,Urine Not Detected (NotDetected); Methadone Screen, Urine Not Detected (NotDetected); Opiate Screen,Urine Not Detected (NotDetected); Oxycodone Screen, Urine Not Detected (NotDetected); Phencyclidine Screen,Urine Not Detected (NotDetected); Tricyclic Antidepressant,Urine Not Detected (NotDetected); Urn Cannabinoid Scrn Not Detected (NotDetected)
[2018-12-16] MEDS ORDERED: NALOXONE 0.4 MG/ML 1 ML VIAL IV PRN (22:42)
[2018-12-16] MEDS: SODIUM CHLORIDE 0.9% 1,000 ML IV SCH (23:01)
[2018-12-17 00:19] VITALS: BMI 20.7
[2018-12-17] MEDS: SODIUM CHLORIDE 0.9% 1,000 ML IV SCH ×2 (07:59→19:58)
[2018-12-17] MEDS ORDERED: MAGNESIUM HYDROXIDE 2,400 MG/10 ML CUP PO PRN (10:39)
[2018-12-17] MEDS ORDERED: NA PHOS,M-B/NA PHOS,DI-BA 133 ML ENEMA RECTAL PRN (10:39)
[2018-12-17] MEDS ORDERED: BISACODYL 10 MG SUPP RECTAL PRN (10:39)
--- NOTE | 2018-12-17 11:24 | P.DS ---
Providers Date of admission: 12/16/18 22:41 Attending physician: Tayla Mohan Consults: 12/16/18 22:56 Consult Physician Routine Consulting Provider: Karen Erickson Consult Reason/Comments: AMS, h/o parkinsons Do you want consulting provider notified?: Yes 12/17/18 11:21 Consult Physician Stat Consulting Provider: Psychiatry - [facility] Psychiatry Consult Reason/Comments: AMS Do you want consulting provider notified?: Yes Primary care physician: Bruno Monahan [facility] Course: Please refer to HPI for further details Patient Condition at Discharge: Fair Plan - Discharge Summary Discharge Rx Participant: No New Discharge Prescriptions: New QUEtiapine [SEROquel] 25 mg PO HS PRN #30 tab PRN Reason: Agitation No Action rOPINIRole HCL [Requip] 0.5 mg PO TID@0800,1200,1700 Carbidopa-Levodopa 25-100 mg [Sinemet 25-100 mg] 1 tab PO TID@0800,1200,1700 Albuterol Inhaler [Ventolin Hfa Inhaler] 1 - 2 puff INHALATION RT-Q6H PRN PRN Reason: Shortness Of Breath Psyllium Husk 100% [Metamucil Packet] 6 gm PO DAILY packet predniSONE See Taper PO DAILY Bisacodyl [Dulcolax] 10 mg RECTAL DAILY PRN PRN Reason: Constipation Na Phos,M-B/Na Phos,Di-Ba [Fleet Adult] 133 ml RECTAL DAILY PRN PRN Reason: Constipation Baclofen 5 mg PO TID PRN PRN Reason: Spasms Magnesium Hydroxide [Milk of Magnesia] 2,400 mg PO DAILY PRN PRN Reason: Constipation Lactose-Reduced Food [Ensure Plus] 1 can PO TID@0800,1200,1700 Naproxen [Naprosyn] 250 mg PO BID@0800,2100 Discharge Medication List Albuterol Inhaler [Ventolin Hfa Inhaler] 1 - 2 puff INHALATION RT-Q6H PRN 12/10/18 [History] Carbidopa-Levodopa 25-100 mg [Sinemet 25-100 mg] 1 tab PO TID@0800,1200,1700 12/10/18 [History] rOPINIRole HCL [Requip] 0.5 mg PO TID@0800,1200,1700 12/10/18 [History] Psyllium Husk 100% [Metamucil Packet] 6 gm PO DAILY packet 12/13/18 [Rx] Baclofen 5 mg PO TID PRN 12/17/18 [History] Bisacodyl [Dulcolax] 10 mg RECTAL DAILY PRN 12/17/18 [History] Lactose-Reduced Food [Ensure Plus] 1 can PO TID@0800,1200,1700 12/17/18 [History] Magnesium Hydroxide [Milk of Magnesia] 2,400 mg PO DAILY PRN 12/17/18 [History] Na Phos,M-B/Na Phos,Di-Ba [Fleet Adult] 133 ml RECTAL DAILY PRN 12/17/18 [History] Naproxen [Naprosyn] 250 mg PO BID@0800,2100 12/17/18 [History] QUEtiapine [SEROquel] 25 mg PO HS PRN #30 tab 12/17/18 [Rx] predniSONE See Taper PO DAILY 12/17/18 [History] Follow up Appointment(s)/Referral(s): Bruno Morley DO [Primary Care Provider] - 3 Days Discharge Disposition: HOME SELF-CARE
--- NOTE | 2018-12-17 11:24 | P.HPIM ---
History of Present Illness His is a pleasant 67-year-old gentleman was sent in here because of altered mental status and agitation his altered mental status is mainly agitation patient does have history of Parkinson's and parkinsonian dementia or Lewy body dementia.. CAT scan of the head did show increased ectopy for his age. Patient doesn't add denied any fever patient is alert oriented 3. There is no evidence of infection patient denied any cough denied any dysuria although workup for infection is negative. Patient's aggressive behavior and agitation is probably related to his Parkinson's and parkinsonian dementia. Patient will be started on low-dose Seroquel and will be discharged today. Patient was recently discharged to subacute rehabilitation after his recent hospitalization. She was evaluated in the past for altered mental status and at that time patient underwent extensive workup and was diagnosed with lewy body dementia. Review of Systems REVIEW OF SYSTEMS: CONSTITUTIONAL: No fever, no malaise, no fatigue. HEENT: No recent visual problems or hearing problems. Denied any sore throat. CARDIOVASCULAR: No chest pain, orthopnea, PND, no palpitations, no syncope. PULMONARY: No shortness of breath, no cough, no hemoptysis. GASTROINTESTINAL: No diarrhea, no nausea, no vomiting, no abdominal pain. NEUROLOGICAL: No headaches, no weakness, no numbness. HEMATOLOGICAL: Denies any bleeding or petechiae. GENITOURINARY: Denies any burning micturition, frequency, or urgency. MUSCULOSKELETAL/RHEUMATOLOGICAL: Denies any joint pain, swelling, or any muscle pain. ENDOCRINE: Denies any polyuria or polydipsia. The rest of the 14-point review of systems is negative. Past Medical History Past Medical History: COPD, Hypertension Additional Past Medical History / Comment(s): Parkinson's History of Any Multi-Drug Resistant Organisms: None Reported Past Surgical History: Adenoidectomy, Back Surgery, Tonsillectomy Additional Past Surgical History / Comment(s): Patient denies metal implants Past Psychological History: No Psychological Hx Reported Smoking Status: Unknown if ever smoked Past Alcohol Use History: None Reported Past Drug Use History: None Reported Medications and Allergies Home Medications Medication Instructions Recorded Confirmed Type Albuterol Inhaler [Ventolin Hfa 1 - 2 puff INHALATION RT-Q6H PRN 12/10/18 12/17/18 History Inhaler] Carbidopa-Levodopa 25-100 mg 1 tab PO TID@0800,1200,1700 12/10/18 12/17/18 History [Sinemet 25-100 mg] rOPINIRole HCL [Requip] 0.5 mg PO TID@0800,1200,1700 12/10/18 12/17/18 History Psyllium Husk 100% [Metamucil 6 gm PO DAILY packet 12/13/18 12/17/18 Rx Packet] Baclofen 5 mg PO TID PRN 12/17/18 12/17/18 History Bisacodyl [Dulcolax] 10 mg RECTAL DAILY PRN 12/17/18 12/17/18 History Lactose-Reduced Food [Ensure Plus] 1 can PO TID@0800,1200,1700 12/17/18 12/17/18 History Magnesium Hydroxide [Milk of 2,400 mg PO DAILY PRN 12/17/18 12/17/18 History Magnesia] Na Phos,M-B/Na Phos,Di-Ba [Fleet 133 ml RECTAL DAILY PRN 12/17/18 12/17/18 History Adult] Naproxen [Naprosyn] 250 mg PO BID@0800,2100 12/17/18 12/17/18 History QUEtiapine [SEROquel] 25 mg PO HS PRN #30 tab 12/17/18 Rx predniSONE See Taper PO DAILY 12/17/18 12/17/18 History Allergies Allergy/AdvReac Type Severity Reaction Status Date / Time amoxicillin [From Augmentin] Allergy Nausea & Verified 12/17/18 09:26 Vomiting clavulanic acid Allergy Nausea & Verified 12/17/18 09:26 [From Augmentin] Vomiting Physical Exam Vitals: Vital Signs Temp Pulse Pulse Resp BP BP Pulse Ox 12/17/18 07:00 97.9 F 75 12 167/90 95 12/17/18 01:27 97.7 F 76 18 163/90 98 12/16/18 23:00 72 18 149/90 98 12/16/18 22:00 81 16 152/95 98 12/16/18 21:19 97.7 F 73 18 164/84 99 12/16/18 20:50 77 18 144/88 97 12/16/18 20:35 75 20 143/90 97 12/16/18 20:20 90 18 142/81 99 12/16/18 20:05 88 20 140/82 98 12/16/18 19:50 87 20 139/79 99 12/16/18 19:35 97.7 F 89 20 141/86 100 Intake and Output 12/16/18 12/17/18 12/17/18 22:59 06:59 14:59 Intake Total 650 Output Total 121 Balance 529 Intake: Intake, IV Titration 650 Amount Sodium Chloride 0.9% 1, 650 000 ml @ 100 mls/hr IV . Q10H [facility] Rx#:[id number] Output: Urine 121 Other: Voiding Method Urinal Urinal Diaper Diaper Incontinent Incontinent # Voids 3 Weight 59.874 kg 59.874 kg PHYSICAL EXAMINATION: GENERAL: The patient is alert and oriented x3, not in any acute distress. Well d eveloped, well nourished. Does have flat affect and mild parkinsonian tremor HEENT: Pupils are round and equally reacting to light. EOMI. No scleral icterus. No conjunctival pallor. Normocephalic, atraumatic. No pharyngeal erythema. No thyromegaly. CARDIOVASCULAR: S1 and S2 present. No murmurs, rubs, or gallops. PULMONARY: Chest is clear to auscultation, no wheezing or crackles. ABDOMEN: Soft, nontender, nondistended, normoactive bowel sounds. No palpable organomegaly. MUSCULOSKELETAL: No joint swelling or deformity. EXTREMITIES: No cyanosis, clubbing, or pedal edema. NEUROLOGICAL: Gross neurological examination did not reveal any focal deficits. SKIN: No rashes. Results CBC & Chem 7: 12/16/18 20:00 12/16/18 20:00 Labs: Abnormal Lab Results - Last 24 Hours (Table) 12/16/18 12/16/18 Range/Units 20:00 20:09 Carbon Dioxide 31 H (22-30) mmol/L BUN 29 H (9-20) mg/dL Glucose 117 H (74-99) mg/dL POC Glucose (mg/dL) 110 H (75-99) mg/dL AST 16 L (17-59) U/L ALT 6 L (21-72) U/L Total Protein 6.2 L (6.3-8.2) g/dL Assessment and Plan Plan: -Agitation, secondary to advancing Lewy body dementia and parkinsonian dementia and patient is in unfamiliar environment that is subacute rehabilitation. Patient will be discharged on low-dose of Seroquel and as-needed basis for agitation. Patient will benefit from the orientation therapy and family being at his side most of the times in the day. Nothing much else can be offered patient doesn't have any delirium. -Parkinson's: Fairly well controlled symptoms continue with Requip and carbidopa levodopa, continued physical therapy -Chronic low back pain -COPD without any acute exacerbation patient is a Smoker -Essential hypertension Rule out infection patient will be discharged back to subacute senior living.
[2018-12-17] MEDS: CARBIDOPA-LEVODOPA 25-100 MG 1 EACH TAB PO SCH ×2 (11:49→17:23)
[2018-12-17] MEDS ORDERED: NON FORMULARY DRUG (Lactose-Reduced Food [Ensure Plus] 1 CAN) PO SCH (12:00)
--- NOTE | 2018-12-17 14:34 | P.HP ---
Psychiatric H&P - . H&P Date: 12/17/18 History & Physical: IIDENTIFYING DATA: The patient is a 67-year-old male with a history of dementia and Parkinson's disease transferred from the [facility] with acute agitation. HISTORY OF PRESENT ILLNESS: The attending psychiatrist consulted psychiatry at the [facility]. The patient was unable to provide a current medical or psychiatric history. He has advanced dementia where he is oriented only to person. According to the record he was recently transferred from his assisted living facility to the care home. On the day of admission he began "acting aggressively" where he was trying to "cut people with a comb". During his brief medical hospitalization he demonstrated no episodes of agitation or aggression. He was unable to explain the reasons for this hospitalization. He did not know where he was living prior to this admission and was unable to state where he will live after discharge. He did not know the name of this facility or the month, year or day of the week. PAST PSYCHIATRIC HISTORY: Unknown. PAST MEDICAL HISTORY: He was unable to provide a past medical history. According to the medical record he has history of COPD, hypertension, Parkinson's disease and a dementia.. ALLERGIES: Allergy/AdvReac Type Severity Reaction Status Date / Time amoxicillin [From Augmentin] Allergy Nausea & Verified 12/17/18 09:26 Vomiting clavulanic acid Allergy Nausea & Verified 12/17/18 09:26 [From Augmentin] Vomiting SUBSTANCE USE HISTORY: He was unable to provide a history of substance use.. FAMILY PSYCHIATRIC/SUBSTANCE USE HISTORY: Similarly, he was unable to provide a family history of mental illness or substance use problems.. SOCIAL HISTORY: He was unable to provide a social history.. MENTAL STATUS EXAM: He presented as a thin somewhat emaciated appearing elderly male with a thick marks. He was laying in bed and responded to his name. He made eye contact but did not appear to attend to the interview. He had a flat facial expression. He was alert but oriented to person only. He showed no psychomotor abnormalities. He is not agitated or restless. His speech was not spontaneous. He had difficulty expressing his thoughts and frequently did not answer questions. He would stare blankly and response to questions. His affect was flat and unreactive. He did not express clear suicidal ideation or wishes. He did not appear to have paranoid ideation or delusional thoughts. His thinking was concrete and due to the poverty of speech I cannot fully evaluate his associations. He did not appear to be responding to internal stimuli. 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 PLAN: I concur with the trial of Seroquel 25 mg at bedtime, consider titrating the Seroquel gradually according to clinical tolerance and clinical effect. There is no indication for transfer to the psychiatric unit. Due to the severity of his dementia he is not appropriate for referral for outpatient mental health services. Thank you for this consult. Allergies Intake & Output 12/16/18 12/17/18 12/17/18 18:59 06:59 18:59 Intake Total 650 Output Total 121 Balance 529 Weight 59.874 kg 59.874 kg Intake: Intake, IV Titration 650 Amount Sodium Chloride 0.9% 1, 650 000 ml @ 100 mls/hr IV . Q10H [facility] Rx#:[id number] Output: Urine 121 Other: Voiding Method Urinal Urinal Diaper Diaper Incontinent Incontinent # Voids 3 Laboratory Last Values WBC 9.5 k/uL (3.8-10.6) 12/16/18 20:00 RBC 4.52 m/uL (4.30-5.90) 12/16/18 20:00 Hgb 14.0 gm/dL (13.0-17.5) 12/16/18 20:00 Hct 42.3 % (39.0-53.0) 12/16/18 20:00 MCV 93.4 fL (80.0-100.0) 12/16/18 20:00 MCH 31.0 pg (25.0-35.0) 12/16/18 20:00 MCHC 33.2 g/dL (31.0-37.0) 12/16/18 20:00 RDW 12.7 % (11.5-15.5) 12/16/18 20:00 Plt Count 291 k/uL (150-450) 11/10/19 20:00 Neutrophils % 74 % 12/16/18 20:00 Lymphocytes % 15 % 12/16/18 20:00 Monocytes % 9 % 12/16/18 20:00 Eosinophils % 0 % 12/16/18 20:00 Basophils % 1 % 12/16/18 20:00 Neutrophils # 7.0 k/uL (1.3-7.7) 12/16/18 20:00 Lymphocytes # 1.4 k/uL (1.0-4.8) 12/16/18 20:00 Monocytes # 0.9 k/uL (0-1.0) 12/16/18 20:00 Eosinophils # 0.0 k/uL (0-0.7) 12/16/18 20:00 Basophils # 0.1 k/uL (0-0.2) 12/16/18 20:00 PT 10.4 sec (9.0-12.0) 12/16/18 20:00 INR 1.0 (<1.2) 12/16/18 20:00 APTT 23.3 sec (22.0-30.0) 12/16/18 20:00 Sodium 137 mmol/L (137-145) 12/16/18 20:00 Potassium 4.4 mmol/L (3.5-5.1) 12/16/18 20:00 Chloride 100 mmol/L (98-107) 12/16/18 20:00 Carbon Dioxide 31 mmol/L (22-30) H 12/16/18 20:00 Anion Gap 6 mmol/L 12/16/18 20:00 BUN 29 mg/dL (9-20) H 12/16/18 20:00 Creatinine 0.88 mg/dL (0.66-1.25) 12/16/18 20:00 Est GFR (CKD-EPI)AfAm >90 (>60 ml/min/1.73 sqM) 12/16/18 20:00 Est GFR (CKD-EPI)NonAf 88 (>60 ml/min/1.73 sqM) 12/16/18 20:00 Glucose 117 mg/dL (74-99) H 12/16/18 20:00 POC Glucose (mg/dL) 110 mg/dL (75-99) H 12/16/18 20:09 POC Glu [employer] Ari Moralez 12/16/18 20:09 Calcium 9.3 mg/dL (8.4-10.2) 12/16/18 20:00 Total Bilirubin 0.4 mg/dL (0.2-1.3) 12/16/18 20:00 AST 16 U/L (17-59) L 12/16/18 20:00 ALT 6 U/L (21-72) L 12/16/18 20:00 Alkaline Phosphatase 65 U/L (38-126) 12/16/18 20:00 Ammonia <9 umol/L (<30) 12/16/18 20:00 Troponin I <0.012 ng/mL (0.000-0.034) 12/16/18 20:00 Total Protein 6.2 g/dL (6.3-8.2) L 12/16/18 20:00 Albumin 3.9 g/dL (3.5-5.0) 12/16/18 20:00 TSH 0.757 mIU/L (0.465-4.680) 12/16/18 20:00 Urine Color Yellow 12/16/18 20:45 Urine Appearance Clear (Clear) 12/16/18 20:45 Urine pH 6.5 (5.0-8.0) 12/16/18 20:45 Ur Specific [place] 1.022 (1.001-1.035) 12/16/18 20:45 Urine Protein Negative (Negative) 12/16/18 20:45 Urine Glucose (UA) Negative (Negative) 12/16/18 20:45 Urine Ketones Negative (Negative) 12/16/18 20:45 Urine Blood Negative (Negative) 12/16/18 20:45 Urine Nitrite Negative (Negative) 12/16/18 20:45 Urine Bilirubin Negative (Negative) 12/16/18 20:45 Urine Urobilinogen <2.0 mg/dL (<2.0) 12/16/18 20:45 Ur Leukocyte Esterase Negative (Negative) 12/16/18 20:45 Urine Opiates Screen Not Detected (NotDetected) 12/16/18 20:45 Ur Oxycodone Screen Not Detected (NotDetected) 12/16/18 20:45 Urine Methadone Screen Not Detected (NotDetected) 12/16/18 20:45 Ur Propoxyphene Screen Not Detected (NotDetected) 12/16/18 20:45 Acetaminophen <10.0 ug/mL 12/16/18 20:00 Ur Barbiturates Screen Not Detected (NotDetected) 12/16/18 20:45 U Tricyclic Antidepress Not Detected (NotDetected) 12/16/18 20:45 Ur Phencyclidine Scrn Not Detected (NotDetected) 12/16/18 20:45 Ur Amphetamines Screen Not Detected (NotDetected) 12/16/18 20:45 U Methamphetamines Scrn Not Detected (NotDetected) 12/16/18 20:45 U Benzodiazepines Scrn Not Detected (NotDetected) 12/16/18 20:45 Urine Cocaine Screen Not Detected (NotDetected) 12/16/18 20:45 U Marijuana (THC) Screen Not Detected (NotDetected) 12/16/18 20:45 12/17/18 14:19
--- NOTE | 2018-12-17 17:31 | P.CNNES ---
History of Present Illness Consult date: 12/17/18 Requesting physician: Zach Shaw Reason for Consult: Altered mental status, history of Parkinson's History of Present Illness: Patient is a 67-year-old male who has history of Parkinson's disease, dementia, admitted to the hospital yesterday evening for altered mental status. Patient apparently was discharged from this facility about 3 days ago. Patient was previously living in assisted living but now was [facility] a [facility]. Apparently today staff was interacting with the patient to give him medication and he began acting aggressively. States he was trying to cut people with a comb. EMS was called and when they arrived, patient was apparently looking for something under the bed. Patient was recently seen by Dr. Erickson in consultation, and patient underwent an MRI of the brain, which revealed small vessel disease. EEG revealed possible metabolic encephalopathy without any epileptiform activity. Patient was taking Aricept 10 mg daily prior to that admission. Apparently Aricept was discontin ued on the last admission. Sitter was present by the bedside. He states that patient has been trying to get out of bed. Patient mumbles, often difficult to understand speech. He could not tell when he was diagnosed with Parkinson's. He mumbled "End of me is near". This was also heard by the sitter. Patient denies any pain. Patient's B12 was 416 or 12/12/2018, TSH normal 0.757. CPK normal. Ammonia also normal. Renal functions normal. UA negative. Review of Systems ROS unobtainable: due to mental status Past Medical History Past Medical History: COPD, Hypertension Additional Past Medical History / Comment(s): Parkinson's History of Any Multi-Drug Resistant Organisms: None Reported Past Surgical History: Adenoidectomy, Back Surgery, Tonsillectomy Additional Past Surgical History / Comment(s): Patient denies metal implants Past Psychological History: No Psychological Hx Reported Smoking Status: Unknown if ever smoked Past Alcohol Use History: None Reported Past Drug Use History: None Reported Medications and Allergies Home Medications Medication Instructions Recorded Confirmed Type Albuterol Inhaler [Ventolin Hfa 1 - 2 puff INHALATION RT-Q6H PRN 12/10/18 12/17/18 History Inhaler] Carbidopa-Levodopa 25-100 mg 1 tab PO TID@0800,1200,1700 12/10/18 12/17/18 History [Sinemet 25-100 mg] rOPINIRole HCL [Requip] 0.5 mg PO TID@0800,1200,1700 12/10/18 12/17/18 History Psyllium Husk 100% [Metamucil 6 gm PO DAILY packet 12/13/18 12/17/18 Rx Packet] Baclofen 5 mg PO TID PRN 12/17/18 12/17/18 History Bisacodyl [Dulcolax] 10 mg RECTAL DAILY PRN 12/17/18 12/17/18 History Lactose-Reduced Food [Ensure Plus] 1 can PO TID@0800,1200,1700 12/17/18 12/17/18 History Magnesium Hydroxide [Milk of 2,400 mg PO DAILY PRN 12/17/18 12/17/18 History Magnesia] Na Phos,M-B/Na Phos,Di-Ba [Fleet 133 ml RECTAL DAILY PRN 12/17/18 12/17/18 History Adult] Naproxen [Naprosyn] 250 mg PO BID@0800,2100 12/17/18 12/17/18 History QUEtiapine [SEROquel] 25 mg PO HS PRN #30 tab 12/17/18 Rx predniSONE See Taper PO DAILY 12/17/18 12/17/18 History Allergies Allergy/AdvReac Type Severity Reaction Status Date / Time amoxicillin [From Augmentin] Allergy Nausea & Verified 12/17/18 09:26 Vomiting clavulanic acid Allergy Nausea & Verified 12/17/18 09:26 [From Augmentin] Vomiting Physical Examination - Vital Signs Vital Signs: Vital Signs Temp Pulse Pulse Resp BP BP Pulse Ox 12/17/18 07:00 97.9 F 75 12 167/90 95 12/17/18 01:27 97.7 F 76 18 163/90 98 12/16/18 23:00 72 18 149/90 98 12/16/18 22:00 81 16 152/95 98 12/16/18 21:19 97.7 F 73 18 164/84 99 12/16/18 20:50 77 18 144/88 97 12/16/18 20:35 75 20 143/90 97 12/16/18 20:20 90 18 142/81 99 12/16/18 20:05 88 20 140/82 98 12/16/18 19:50 87 20 139/79 99 12/16/18 19:35 97.7 F 89 20 141/86 100 Intake and Output 12/17/18 12/17/18 12/17/18 06:59 14:59 22:59 Intake Total 650 1500 Output Total 121 Balance 529 1500 Intake: Intake, IV Titration 650 700 Amount Sodium Chloride 0.9% 1, 650 700 000 ml @ 100 mls/hr IV . Q10H [facility] Rx#:[id number] Oral 800 Output: Urine 121 Other: Voiding Method Urinal Urinal Diaper Diaper Incontinent Incontinent # Voids 3 Weight 59.874 kg On examination patient is an elderly male, who appears obviously depressed. He is bradykinetic. Patient mumbles, often difficult to understand his speech. Patient has poor content. Patient could not tell me the name of the city or state he is in, or month or year, or the name of the building, although it could also be related to patient not cooperating with exam, and voluntary not providing information. Patient has negative palmomental reflex. On cranial nerve examination pupils are round and reactive to light. Visual ríos could not be tested. Extraocular muscles appears intact. Face is symmetric. Patient did not protrude the tongue. Patient's muscle strength appears equal, again he did not cooperate. 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 He did not let me check the deltoids, or the lower extremities. Reflexes are symmetric and plantars are downgoing. Tone is mildly increased. Some parkinsonian tremors noted in the left hand. Patient does appear bradykinetic. Results - Laboratory Findings CBC and BMP: 12/16/18 20:00 12/16/18 20:00 Abnormal Lab Findings: Abnormal Labs 12/16/18 12/16/18 20:00 20:09 Carbon Dioxide 31 H BUN 29 H Glucose 117 H POC Glucose (mg/dL) 110 H AST 16 L ALT 6 L Total Protein 6.2 L Assessment and Plan Assessment: * Parkinson's with dementia. Possible Lewy body dementia with behavioral disturbance. Plan: * Start Exelon patch 4.6 mg daily. * Also start Namenda 5 mg twice a day for advanced dementia with behavioral disturbances. * If aggression and behavioral problems continue, then may need psychiatry evaluation. * Continue same dose of Sinemet 25/100, 1 tablet 3 times a day and Requip 0.5 mg 3 times a day. * Thank you very much for allowing me to participate in care of your patient.
[2018-12-17] MEDS: RIVASTIGMINE 4.6MG/24HR PATCH TRANSDERM SCH (17:53)
[2018-12-17] MEDS: MEMANTINE 5 MG TAB PO SCH (19:58)
[2018-12-17] MEDS: NAPROXEN 250 MG TAB PO SCH (19:58)
[2018-12-18] MEDS ORDERED: LORazepam 2 MG/ML INJ IV STA (00:04)
[2018-12-18] MEDS: SODIUM CHLORIDE 0.9% 1,000 ML IV SCH ×2 (04:33→16:20)
[2018-12-18] MEDS: CARBIDOPA-LEVODOPA 25-100 MG 1 EACH TAB PO SCH ×3 (09:36→17:42)
[2018-12-18] MEDS: NAPROXEN 250 MG TAB PO SCH ×2 (09:36→19:51)
[2018-12-18] MEDS: MEMANTINE 5 MG TAB PO SCH ×2 (09:36→19:52)
[2018-12-18] MEDS: predniSONE 10 MG TAB PO SCH (09:36)
[2018-12-18] MEDS: PSYLLIUM HUSK 100% 6 GM PACKET PO SCH (09:37)
--- NOTE | 2018-12-18 12:15 | P.PN ---
Subjective Progress Note Date: 12/18/18 Patient asleep. Apparently patient received 1 mg of Ativan last night and now patient is just significantly sleepy. Patient has received an Exelon patch and Namenda 5 mg last night. Objective - Vital Signs Vital signs: Vital Signs Temp 97.7 F 12/18/18 00:18 Pulse 84 12/18/18 00:18 Resp 16 12/18/18 03:03 BP 151/87 12/18/18 00:18 Pulse Ox 94 L 12/18/18 01:20 Intake & Output 12/17/18 12/18/18 12/18/18 18:59 06:59 18:59 Intake Total 1500 Balance 1500 Weight 59.874 kg Intake: Intake, IV Titration 700 Amount Sodium Chloride 0.9% 1, 700 000 ml @ 100 mls/hr IV . Q10H [facility] Rx#:[id number] Oral 800 Other: Voiding Method Urinal Bedside Commode Bedside Commode Diaper Diaper Diaper Incontinent # Voids 1 - Exam Cannot be performed as patient was asleep. - Labs CBC & Chem 7: 12/16/18 20:00 12/16/18 20:00 Assessment and Plan Assessment: * Parkinson's with dementia. Possible Lewy body dementia with behavioral dist urbance. Plan: * Continue Exelon patch 4.6 mg daily. * Continue Namenda 5 mg twice a day for advanced dementia with behavioral disturbances. * If aggression and behavioral problems continue, then may need psychiatry evaluation. * Continue same dose of Sinemet 25/100, 1 tablet 3 times a day and Requip 0.5 mg 3 times a day. * Avoid sedatives, hypnotics or anticholinergics.
--- NOTE | 2018-12-18 15:04 | P.PN ---
Subjective 67-year-old admitted with the agitation secondary to parkinsonian dementia or LEWY body dementia. Patient doesn't have any signs or symptoms of sepsis at this time. Nothing much can be offered here as an inpatient patient will need as needed Seroquel. Patient was ordered by neurology and psychiatric neurology is recommending Exelon patch and Namenda. Risperidone and Haldol need to be avoided because of his history of Parkinson's. Benzodiazepines, barbiturates, opiates and anticholinergic medications need to be avoided as well. Patient w ill benefit from going back to family environment like his home or [facility] where he came from. Patient probably will not benefit from subacute rehabilitation as patient has an irreversible condition of Parkinson's which she is only expected to get worse. Case management and social scientist working on appropriate disposition. Objective - Vital Signs Vital signs: Vital Signs Temp 97.7 F 12/18/18 00:18 Pulse 84 12/18/18 00:18 Resp 16 12/18/18 03:03 BP 151/87 12/18/18 00:18 Pulse Ox 94 L 12/18/18 01:20 Intake & Output 12/17/18 12/18/18 12/18/18 18:59 06:59 18:59 Intake Total 1500 Balance 1500 Weight 59.874 kg Intake: Intake, IV Titration 700 Amount Sodium Chloride 0.9% 1, 700 000 ml @ 100 mls/hr IV . Q10H [facility] Rx#:[id number] Oral 800 Other: Voiding Method Urinal Bedside Commode Bedside Commode Diaper Diaper Diaper Incontinent # Voids 1 - Exam PHYSICAL EXAMINATION: GENERAL: The patient is alert and oriented x3, not in any acute distress. Well developed, well nourished. Does have flat affect and mild parkinsonian tremor HEENT: Pupils are round and equally reacting to light. EOMI. No scleral icterus. No conjunctival pallor. Normocephalic, atraumatic. No pharyngeal erythema. No thyromegaly. CARDIOVASCULAR: S1 and S2 present. No murmurs, rubs, or gallops. PULMONARY: Chest is clear to auscultation, no wheezing or crackles. ABDOMEN: Soft, nontender, nondistended, normoactive bowel sounds. No palpable organomegaly. MUSCULOSKELETAL: No joint swelling or deformity. EXTREMITIES: No cyanosis, clubbing, or pedal edema. NEUROLOGICAL: Gross neurological examination did not reveal any focal deficits. SKIN: No rashes. - Labs CBC & Chem 7: 12/16/18 20:00 12/16/18 20:00 Assessment and Plan Plan: -Agitation, secondary to advancing Lewy body dementia and parkinsonian dementia and patient is in unfamiliar environment that is subacute rehabilitation. Patient will be discharged on low-dose of Seroquel and as-needed basis for agitation. Patient will benefit from the orientation therapy and family being at his side most of the times in the day. Nothing much else can be offered patient doesn't have any delirium. Patient was started on Exelon patch and Namenda by neurology -Parkinson's: Fairly well controlled symptoms continue with Requip and carbidopa levodopa, continued physical therapy -Chronic low back pain -COPD without any acute exacerbation patient is a Smoker -Essential hypertension Rule out infection patient will be discharged back to subacute care home.
[2018-12-18] MEDS: RIVASTIGMINE 4.6MG/24HR PATCH TRANSDERM SCH (17:43)
[2018-12-18] MEDS ORDERED: QUEtiapine 25 MG TAB PO PRN (18:37)
[2018-12-18] MEDS: ALBUTEROL NEBULIZED 2.5 MG/3 ML INHALATION PRN (20:45)
[2018-12-19] MEDS: SODIUM CHLORIDE 0.9% 1,000 ML IV SCH ×3 (01:43→23:27)
[2018-12-19] MEDS: NAPROXEN 250 MG TAB PO SCH ×2 (08:04→22:04)
[2018-12-19] MEDS: PSYLLIUM HUSK 100% 6 GM PACKET PO SCH (08:05)
[2018-12-19] MEDS: MEMANTINE 5 MG TAB PO SCH ×2 (08:05→22:03)
[2018-12-19] MEDS: CARBIDOPA-LEVODOPA 25-100 MG 1 EACH TAB PO SCH ×3 (08:05→18:27)
[2018-12-19] MEDS: predniSONE 10 MG TAB PO SCH (08:05)
[2018-12-19] MEDS: ALBUTEROL NEBULIZED 2.5 MG/3 ML INHALATION PRN ×3 (08:19→20:57)
--- NOTE | 2018-12-19 13:21 | P.PN ---
Subjective 67-year-old admitted with the agitation secondary to parkinsonian dementia or LEWY body dementia. Patient doesn't have any signs or symptoms of sepsis at this time. Nothing much can be offered here as an inpatient patient will need as needed Seroquel. Patient was ordered by neurology and psychiatric neurology is recommending Exelon patch and Namenda. Risperidone and Haldol need to be avoided because of his history of Parkinson's. Benzodiazepines, barbiturates, opiates and anticholinergic medications need to be avoided as well. Patient w ill benefit from going back to family environment like his home or [facility] where he came from. Patient probably will not benefit from subacute rehabilitation as patient has an irreversible condition of Parkinson's which she is only expected to get worse. Case management and manager social media working on appropriate disposition. 12/19/2018 Patient is clinically doing well at this time patient is awake alert. No agitation episodes last night with awaiting disposition to subacute rehabilitation they're waiting on prior authorization. Constitutional: Denied any fatigue denied any fever. Cardio vascular: denied any chest pain, palpitations Gastrointestinal denied any nausea vomiting Pulmonary: Denied any shortness of breath cough Neurologic denied any new focal deficits All inpatient medications were reviewed and appropriate changes in these medications as dictated in the interval history and assessment and plan. Objective - Vital Signs Vital signs: Vital Signs Temp 97.8 F 12/19/18 07:13 Pulse 82 12/19/18 08:35 Resp 16 12/19/18 08:00 BP 163/90 12/19/18 07:13 Pulse Ox 96 12/19/18 07:13 Intake & Output 12/18/18 12/19/18 12/19/18 18:59 06:59 18:59 Intake Total 1100 150 180 Balance 1100 150 180 Intake: Intake, IV Titration 700 Amount Sodium Chloride 0.9% 1, 700 000 ml @ 100 mls/hr IV . Q10H [facility] Rx#:[id number] Oral 400 150 180 Other: Voiding Method Bedside Commode Toilet Toilet Diaper Bedside Commode Bedside Commode Diaper Diaper Incontinent Incontinent # Voids 2 - Exam PHYSICAL EXAMINATION: GENERAL: The patient is alert and oriented x3, not in any acute distress. Well developed, well nourished. HEENT: Pupils are round and equally reacting to light. EOMI. No scleral icterus. No conjunctival pallor. Normocephalic, atraumatic. No pharyngeal erythema. No thyromegaly. CARDIOVASCULAR: S1 and S2 present. No murmurs, rubs, or gallops. PULMONARY: Chest is clear to auscultation, no wheezing or crackles. ABDOMEN: Soft, nontender, nondistended, normoactive bowel sounds. No palpable organomegaly. MUSCULOSKELETAL: No joint swelling or deformity. EXTREMITIES: No cyanosis, clubbing, or pedal edema. NEUROLOGICAL: Gross neurological examination did not reveal any focal deficits. SKIN: No rashes. - Labs CBC & Chem 7: 12/16/18 20:00 12/16/18 20:00 Assessment and Plan Plan: -Agitation, secondary to advancing Lewy body dementia and parkinsonian dementia and patient is in unfamiliar environment that is subacute rehabilitation. Patient will be discharged on low-dose of Seroquel and as-needed basis for agitation. Patient will benefit from the orientation therapy and family being at his side most of the times in the day. Nothing much else can be offered patient doesn't have any delirium. Patient was started on Exelon patch and Namenda by neurology -Parkinson's: Fairly well controlled symptoms continue with Requip and carbidopa levodopa, continued physical therapy -Chronic low back pain -COPD without any acute exacerbation patient is a Smoker -Essential hypertension She is awaiting this patient is subacute long term
--- NOTE | 2018-12-19 14:03 | P.PN ---
Subjective Progress Note Date: 12/19/18 Patient was awake, sitting in the recliner. Offers no new complaints. Patient much more comfortable, smiling, answering appropriately. Patient denies nausea vomiting, or bowel issues. Patient tolerating medications well. Patient is currently on Exelon patch 4.6 with a and Namenda 5 mg twice a day. Objective - Vital Signs Vital signs: Vital Signs Temp 97.8 F 12/19/18 07:13 Pulse 80 12/19/18 13:35 Resp 16 12/19/18 08:00 BP 163/90 12/19/18 07:13 Pulse Ox 96 12/19/18 07:13 Intake & Output 12/18/18 12/19/18 12/19/18 18:59 06:59 18:59 Intake Total 1100 150 180 Balance 1100 150 180 Intake: Intake, IV Titration 700 Amount Sodium Chloride 0.9% 1, 700 000 ml @ 100 mls/hr IV . Q10H [facility] Rx#:[id number] Oral 400 150 180 Other: Voiding Method Bedside Commode Toilet Toilet Diaper Bedside Commode Bedside Commode Diaper Diaper Incontinent Incontinent # Voids 2 - Exam Patient is much more alert and awake. Patient knows that it is December and the year is and the name of the current president. Patient could not tell what city he lives, states "probably [place]" [place]. He knows that he is in the hospital but does not know the name. Speech and language functions are normal. Affect normal. Patient not agitated. - Labs CBC & Chem 7: 12/16/18 20:00 12/16/18 20:00 Assessment and Plan Assessment: * Parkinson's with dementia. Possible Lewy body dementia with behavioral disturbance. Plan: * Continue Exelon patch 4.6 mg daily. * Continue Namenda 5 mg twice a day for advanced dementia with behavioral disturbances. * Patient has improved clinically. * Continue same dose of Sinemet 25/100, 1 tablet 3 times a day and Requip 0.5 mg 3 times a day. * Avoid sedatives, hypnotics or anticholinergics. * Neurologically clear.
[2018-12-19] MEDS: RIVASTIGMINE 4.6MG/24HR PATCH TRANSDERM SCH (18:26)
[2018-12-20] MEDS: PSYLLIUM HUSK 100% 6 GM PACKET PO SCH (07:55)
[2018-12-20] MEDS: NAPROXEN 250 MG TAB PO SCH (07:56)
[2018-12-20] MEDS: MEMANTINE 5 MG TAB PO SCH (07:57)
[2018-12-20] MEDS: predniSONE 10 MG TAB PO SCH (07:57)
[2018-12-20] MEDS: CARBIDOPA-LEVODOPA 25-100 MG 1 EACH TAB PO SCH ×2 (07:57→11:30)
[2018-12-20] MEDS: ALBUTEROL NEBULIZED 2.5 MG/3 ML INHALATION PRN (08:12)
[2018-12-20 11:22] VITALS: BP 107/68; PULSE 84; RESP 20; TEMP 98.2
--- NOTE | 2018-12-20 11:56 | P.PN ---
Subjective Progress Note Date: 12/20/18 Patient was awake, sitting in the recliner. Offers no new complaints. Patient much more comfortable, smiling, answering appropriately. Patient denies nausea vomiting, or bowel issues. Patient tolerating medications well. Patient is currently on Exelon patch 4.6 with a and Namenda 5 mg twice a day. No behavioral issues reported by the nurse. Objective - Vital Signs Vital signs: Vital Signs Temp 98.2 F 12/20/18 11:00 Pulse 84 12/20/18 11:00 Resp 20 12/20/18 11:00 BP 107/68 12/20/18 11:00 Pulse Ox 97 12/20/18 11:00 Intake & Output 12/19/18 12/20/18 12/20/18 18:59 06:59 18:59 Intake Total 880 840 180 Balance 880 840 180 Intake: Intake, IV Titration 700 Amount Sodium Chloride 0.9% 1, 700 000 ml @ 100 mls/hr IV . Q10H [facility] Rx#:[id number] Oral 180 840 180 Other: Voiding Method Toilet Toilet Bedside Commode Bedside Commode Bedside Commode Diaper Diaper Incontinent Incontinent # Voids 1 - Exam Patient is much more alert and awake. Patient knows that it is December and the year is and the name of the current president. Patient could not tell what city he lives, states just moved from [facility] 2 weeks ago. Does not remember the city he is currently in. He knows that he is in [place]. Today he was able to tell that he is in [facility]. Speech and language functions are normal. Affect normal. Patient not agitated. - Labs CBC & Chem 7: 12/16/18 20:00 12/16/18 20:00 Assessment and Plan Assessment: * Parkinson's with dementia. Possible Lewy body dementia with behavioral distur bance. Plan: * Continue Exelon patch 4.6 mg daily. * Continue Namenda 5 mg twice a day for advanced dementia with behavioral disturbances. * Patient has improved clinically. * Continue same dose of Sinemet 25/100, 1 tablet 3 times a day and Requip 0.5 mg 3 times a day. * Avoid sedatives, hypnotics or anticholinergics. * Neurologically clear. * Awaiting insurance authorization for transfer to rehab.
--- NOTE | 2018-12-20 14:52 | P.DS ---
Providers Date of admission: 12/18/18 14:18 Attending physician: Tayla Mohan Consults: 12/16/18 22:56 Consult Physician Routine Consulting Provider: Karen Erickson Consult Reason/Comments: AMS, h/o parkinsons Do you want consulting provider notified?: Yes 12/17/18 11:21 Consult Physician Stat Consulting Provider: Tarik Maldonado Consult Reason/Comments: AMS Do you want consulting provider notified?: Yes Primary care physician: Bruno Monahan [facility] Course: 67-year-old admitted with the agitation secondary to parkinsonian dementia or LEWY body dementia. Patient doesn't have any signs or symptoms of sepsis at this time. Nothing much can be offered here as an inpatient patient will need as needed Seroquel. Patient was ordered by neurology and psychiatric neurology is recommending Exelon patch and Namenda. Risperidone and Haldol need to be avoided because of his history of Parkinson's. Benzodiazepines, barbiturates, opiates and anticholinergic medications need to be avoided as well. Patient will benefit from going back to family environment like his home or [facility] where he came from. Patient probably will not benefit from subacute rehabilitation as patient has an irreversible condition of Parkinson's which she is only expected to get worse. Case management and health social work professor working on appropriate disposition. 12/19/2018 Patient is clinically doing well at this time patient is awake alert. No agitation episodes last night with awaiting disposition to subacute rehabilitation they're waiting on prior authorization. 12/20/2018 The patient has on and off episodes of confusion which is expected with his dementia. Patient was started on Namenda and Exelon patch as per recommendations from neurology. Patient is expected to have agitation episodes which need to be treated with atypical antipsychotic medications like Seroquel on as-needed basis. Preferably during nighttime. We will orientation therapy family environment spell help regarding his agitation. PHYSICAL EXAMINATION: GENERAL: The patient is alert and oriented x3, not in any acute distress. Well developed, well nourished. HEENT: Pupils are round and equally reacting to light. EOMI. No scleral icterus. No conjunctival pallor. Normocephalic, atraumatic. No pharyngeal erythema. No thyromegaly. CARDIOVASCULAR: S1 and S2 present. No murmurs, rubs, or gallops. PULMONARY: Chest is clear to auscultation, no wheezing or crackles. ABDOMEN: Soft, nontender, nondistended, normoactive bowel sounds. No palpable organomegaly. MUSCULOSKELETAL: No joint swelling or deformity. EXTREMITIES: No cyanosis, clubbing, or pedal edema. NEUROLOGICAL: Gross neurological examination did not reveal any focal deficits. SKIN: No rashes. Assessment and Plan Plan: -Agitation, secondary to advancing Lewy body dementia and parkinsonian dementia and patient is in unfamiliar environment that is subacute rehabilitation. Patient will be discharged on low-dose of Seroquel and as-needed basis for agitation. Patient will benefit from the re-orientation therapy and family being at his side most of the times in the day. Nothing much else can be offered patient doesn't have any delirium. Patient was started on Exelon patch and Namenda by neurology -Parkinson's: Fairly well controlled symptoms continue with Requip and carbidopa levodopa, continued physical therapy -Chronic low back pain -COPD without any acute exacerbation patient is a Smoker -Essential hypertension Patient Condition at Discharge: Fair Plan - Discharge Summary Discharge Rx Participant: No New Discharge Prescriptions: New QUEtiapine [SEROquel] 25 mg PO HS PRN #30 tab PRN Reason: Agitation Rivastigmine 4.6MG/24Hr Patch [Exelon 4.6MG/24Hr Patch] 1 patch TRANSDERM Q24H patch Memantine [Namenda] 5 mg PO BID tab Continue rOPINIRole HCL [Requip] 0.5 mg PO TID@0800,1200,1700 Carbidopa-Levodopa 25-100 mg [Sinemet 25-100 mg] 1 tab PO TID@0800,1200,1700 Albuterol Inhaler [Ventolin Hfa Inhaler] 1 - 2 puff INHALATION RT-Q6H PRN PRN Reason: Shortness Of Breath Psyllium Husk 100% [Metamucil Packet] 6 gm PO DAILY packet predniSONE See Taper PO DAILY Bisacodyl [Dulcolax] 10 mg RECTAL DAILY PRN PRN Reason: Constipation Na Phos,M-B/Na Phos,Di-Ba [Fleet Adult] 133 ml RECTAL DAILY PRN PRN Reason: Constipation Baclofen 5 mg PO TID PRN PRN Reason: Spasms Magnesium Hydroxide [Milk of Magnesia] 2,400 mg PO DAILY PRN PRN Reason: Constipation Lactose-Reduced Food [Ensure Plus] 1 can PO TID@0800,1200,1700 Naproxen [Naprosyn] 250 mg PO BID@0800,2100 Discharge Medication List Albuterol Inhaler [Ventolin Hfa Inhaler] 1 - 2 puff INHALATION RT-Q6H PRN 12/10/18 [History] Carbidopa-Levodopa 25-100 mg [Sinemet 25-100 mg] 1 tab PO TID@0800,1200,1700 12/10/18 [History] rOPINIRole HCL [Requip] 0.5 mg PO TID@0800,1200,1700 12/10/18 [History] Psyllium Husk 100% [Metamucil Packet] 6 gm PO DAILY packet 12/13/18 [Rx] Baclofen 5 mg PO TID PRN 12/17/18 [History] Bisacodyl [Dulcolax] 10 mg RECTAL DAILY PRN 12/17/18 [History] Lactose-Reduced Food [Ensure Plus] 1 can PO TID@0800,1200,1700 12/17/18 [History] Magnesium Hydroxide [Milk of Magnesia] 2,400 mg PO DAILY PRN 12/17/18 [History] Na Phos,M-B/Na Phos,Di-Ba [Fleet Adult] 133 ml RECTAL DAILY PRN 12/17/18 [History] Naproxen [Naprosyn] 250 mg PO BID@0800,2100 12/17/18 [History] QUEtiapine [SEROquel] 25 mg PO HS PRN #30 tab 12/17/18 [Rx] predniSONE See Taper PO DAILY 12/17/18 [History] Memantine [Namenda] 5 mg PO BID tab 12/20/18 [Rx] Rivastigmine 4.6MG/24Hr Patch [Exelon 4.6MG/24Hr Patch] 1 patch TRANSDERM Q24H patch 12/20/18 [Rx] Follow up Appointment(s)/Referral(s): Bruno Morley DO [Primary Care Provider] - 3 Days Discharge Disposition: TRANSFER TO SNF/ECF
== END 2018-12-20 14:50 ==
LOC: EC 19:34 → UNDOADMOB 22:41 → 4SSUR 22:41 → INTOOBSV 12-18 14:18 → OBSVTOIN 12-18 14:18 → UNDODISIN 12-20 14:50
PROVIDERS: ADMIT Hospitalist; ATTEND Hospitalist
DX: G31.83 Neurocognitive disorder with Lewy bodies (principal); F02.81 Dementia in other diseases classified elsewhere, unspecified severity, with behavioral disturbance; R47.01 Aphasia; N19 Unspecified kidney failure; J44.9 Chronic obstructive pulmonary disease, unspecified; F17.200 Nicotine dependence, unspecified, uncomplicated; R32 Unspecified urinary incontinence; G89.29 Other chronic pain; I10 Essential (primary) hypertension; I73.9 Peripheral vascular disease, unspecified; M54.5 Low back pain; Z79.899 Other long term (current) drug therapy; Z79.52 Long term (current) use of systemic steroids; Z88.1 Allergy status to other antibiotic agents
CPT/HCPCS: 96361 ×2; 96374; 99285; 36415; 94640 ×4; 93005; 97116 ×2; 97162; 97535 ×2; 97166; 80053; 84443; 82140; 84484; 85025; 85610; 85730; 81003; 80306; 71045; 70450; G0378 ×5; G0480; J2060; J7512 ×2; 80329; 96360